=== PATIENT | female | born 1935 | race Caucasian/White ===

== ENCOUNTER 2019-12-17 08:55 | Emergency (ER) | payer MEDICARE, BC, SELFPAY ==
[2019-12-17 08:56] VITALS: BP 146/69; PULSE 67; RESP 15; TEMP 36.8; O2SAT 97; BMI 25.7
--- NOTE | 2019-12-17 10:20 | ED.VIS.GEN ---
History of Present Illness Chief Complaint: Nosebleed Narrative: Patient presenting for evaluation secondary to a nosebleed. Patient states that she has been intermittently dealing with nosebleeds from the left nostril over the course of the last couple of days. She actually was in ENT office and had a nasal scope performed, they were unable to identify a site of bleeding that would lend well to cautery and she was discharged with recommendations to use Afrin. She is continuing to have bleeding. Patient denies any trauma. Patient is not anticoagulated. Review of systems otherwise negative. Past Medical History - Allergies and Home Meds Allergies/Adverse Reactions: Allergies No Known Allergies Allergy (Verified 12/17/19 08:56) Primary Care Physician: Romario Villafana MD [STAFF PHYSICIAN] - (3 days) Past Medical History: - - Hypertension Lives: Alone Smoking Status: Former smoker Alcohol: None Drugs: None Review of Systems All systems negative except as indicated General: Denies: Chills, Fever, Sweats Eyes: Denies: Visual changes - bilaterally, Diplopia ENT: Reports: - - Epistaxis Cardiovascular: Denies: Chest pain, Palpitations Respiratory: Denies: Dyspnea, Cough, Dyspnea on exertion Gastrointestinal: Denies: Abdominal pain, Nausea, Vomiting, Diarrhea, Melena, Hematochezia Genitourinary: Denies: Dysuria, Hematuria, Frequency Musculoskeletal: Denies: Back pain, Extremity Pain Skin: Denies: Rash, Wounds Neurological: Denies: Headache, Weakness, Numbness Physical Exam Vital Signs/Narrative: Vital Signs Temp Pulse Resp BP Pulse Ox 12/17/19 08:56 98.2 F 67 15 146/69 H 97 Inital Vital Signs reviewed: Yes General: Well nourished, Well developed, No Acute Distress Head: Normocephalic, Atraumatic Eyes: Perrl, EOMI. Negative for: Pale conjunctiva ENT: - - Large amount of clot noted in the patient's left nostril. There is some blood in the posterior pharynx. Neck: Supple, Nontender Cardiovascular: Regular rate, Regular rhythm, No murmurs Respiratory: No distress, CTA bilaterally, Chest nontender Abdomen: Soft, Nontender, Nondistended, Normal bowel sounds Back: Nontender, Normal Inspection Extremities: Nontender, No edema Skin: Normal color, No rash Neurological: Alert, Oriented x3, Cranial nerves II-XII grossly intact, Normal Strength, Normal Sensation Psychological: Normal affect, Normal Mood Diagnostic/Tx/Re-eval - Medical Decision Making Patient presented with a nosebleed. She is already been evaluated by ENT, and is having persistent bleeding so I move directly to nasal packing. 5.5 cm anterior Rhino Rocket was placed, patient had hemostasis on multiple repeat evaluations. Patient will follow-up with ENT, she was placed on a course of Keflex. Procedures Procedure(s): Epistaxis management: Patient was verbally consented for anterior nasal packing. Clots were expelled by the patient, patient was then placed in the sniffing position. Lubricated anterior nasal packing was placed along patient's septum and was inflated with a total of 5 cc of air. Patient tolerated this well. ED Disposition - Plan for ED Patient: Disposition: Home or Assisted Living Diagnosis: Epistaxis Instructions: ED Epistaxis Adult Prescriptions: Cephalexin [Keflex] 500 mg PO Q12 #10 cap Prescription Printed Referrals: Romario Villafana MD [STAFF PHYSICIAN] - (3 days)
--- NOTE | 2019-12-17 23:31 | ED.RN ---
PT RETURNED FOR NOSEBLEED. THIS IS THE 3RD TRIP TO THE ED TODAY. NASAL PACKING NOTED TO BE SATURATED.
[2019-12-18] MEDS: Oxymetazoline 0.05% 1 SPRAY SPRAY.BTL 2 SPRAY NASAL (00:31)
[2019-12-18] MEDS: TRANEXAMIC ACID 1,000 MG/10 ML ML 1000 MG IRRIGATION ×2 (00:31→02:00)
[2019-12-18] MEDS: Lidocaine 4% 50 ML Bottle TOPICAL (00:31)
[2019-12-18 00:38] LABS: Absolute Lymphocyte Count 2.45 X10^3/uL (0.83-4.51); Absolute Neutrophil Count 8.4 X10^3/uL (2.0-7.7); Basophil# 0.08 X10^3/uL; Basophil% 0.7 % (0-1); Eosinophil# 0.28 X10^3/uL; Eosinophils% 2.3 % (0-5); Hematocrit 36.8 % (37-47); Hemoglobin 12.1 g/dL (12.0-15.0); Lymphocyte # 2.45 X10^3/ul (4.0); Lymphocyte % 20.1 % (19-41); Mean Corp Hgb Conc 32.9 g/dL (32-36); Mean Corpuscular Volume 97.4 fL (81-99); Mean Platelet Vol. 10.7 fl (6.2-12.0); Monocyte# 0.89 X10^3/uL; Monocyte% 7.3 % (0-10); NRBC Flagged by Analyzer 0 % (0-5); Neutrophil # 8.42 X10^3/uL (2.7-7.7); Neutrophil % 69.1 % (47-70); Platelet Count 255 K/mm3 (150-450); RBC Distribution Width CV 13.6 % (11.6-14.6); RBC Distribution Width SD 48.6 fl (35.1-43.9); Red Blood Count 3.78 M/mm3 (4.2-5.4); White Blood Count 12.2 K/mm3 (4.4-11.0)
[2019-12-18 00:42] LABS: International Normalized Ratio 1.2; Prothrombin Time (Protime)PT. 14.3 SECONDS (11.7-14.9)
[2019-12-18 00:44] LABS: Partial Thromboplast Time 28.3 Seconds (24.1-36.2)
--- NOTE | 2019-12-18 02:01 | ED.VISSUMM ---
- ER Visit Summary Date of Service: 12/18/19 Chief Complaint: Epistaxis History of Present Illness: The patient is a 84 F who presents with epistaxis that recurred again tonight. Patient was seen here twice earlier today. Patient went home and started having more bleeding. Patient then returned to the emergency department. Patient denies any lightheadedness or dizziness. Patient denies any fevers or chills. Physical Examination: Vital signs are stable. Patient is afebrile. Patient is in no acute distress. There is bleeding from the left nares. There is no bleeding from the right nares. There is bleeding in the oropharynx. There is no septal deviation or septal hematoma noted. Cranial nerves II through XII are intact. There are no focal motor or sensory deficits. Heart was regular rate and rhythm. Lungs are clear and equal bilaterally. Abdomen is soft and nontender. Cranial nerves II through XII are intact. There are no focal motor or sensory deficits. Test Results: CBC was within normal limits. PT with INR and PTT were normal. Emergency Department Course and Treatment: The left nares was packed with cotton ball soaked with Afrin and 4% lidocaine. The bleeding seemed to slow down. The left nares was sprayed with transexamined acid. The bleeding appeared to slow down. A 5 cm rapid Rhino was attempted to be placed. There was some resistance with placing the rapid Rhino. The bleeding then became worse. The left nares was again packed with cotton balls soaked with Afrin and 4% lidocaine. The bleeding appeared to improve. Case was discussed with Dr. Villafana. He recommended placing packing in the left nares. A Merocel sponge was placed in the left nares. Patient was able to tolerate this. Patient had no further episodes of epistaxis. Patient will be discharged home. Patient understood and was agreeable with the plan. All questions were answered. Disposition: Discharge home Impression: Epistaxis This note was generated with [employer] dictation software. It may contain incorrect words, spelling, and punctuation that were not noted in review of the chart prior to signing ED Disposition - Plan for ED Patient: Disposition: Home or Assisted Living Diagnosis: Epistaxis Instructions: ED Epistaxis Adult Prescriptions: Cephalexin [Keflex] 500 mg PO Q12 #10 cap Prescription Printed Referrals: Romario Villafana MD [STAFF PHYSICIAN] - 2 Days (3 days)
[2019-12-18 02:29] VITALS: PULSE 110; RESP 18; O2SAT 97
[2019-12-18 02:37] VITALS: BP 122/69
[2019-12-18 05:21] VITALS: BP 137/76; PULSE 69; RESP 15; O2SAT 97
[2019-12-18 06:20] VITALS: BP 137/76; PULSE 69; RESP 15; O2SAT 97
== END 2019-12-18 07:20 | disposition home or self-care (01) ==
PROVIDERS: Emergency Provider Emergency Medicine; PCP Internal Medicine
DX: R04.0 Epistaxis (principal); I10 Essential (primary) hypertension; M19.90 Unspecified osteoarthritis, unspecified site; Z79.899 Other long term (current) drug therapy; Z87.891 Personal history of nicotine dependence
CPT/HCPCS: 30903; 85025; 85610; 85730; 99285; A4216

== ENCOUNTER 2019-12-17 19:57 | Emergency (ER) | payer MEDICARE, BC, SELFPAY ==
[2019-12-17 08:56] VITALS: BMI 25.7
[2019-12-17 19:58] VITALS: BP 124/66; PULSE 73; RESP 16; TEMP 36.6; O2SAT 99; BMI 25.7
--- NOTE | 2019-12-17 22:01 | ED.VIS.GEN ---
History of Present Illness Chief Complaint: Nosebleed Narrative: Patient presenting for evaluation secondary to epistaxis. Patient was seen in the emergency department earlier today, had a left anterior Rhino Rocket placed. She reports that she is starting to have bleeding coming from around the Rhino Rocket. She denies any trauma. Bleeding is mild to moderate. Past Medical History - Allergies and Home Meds Allergies/Adverse Reactions: Allergies No Known Allergies Allergy (Verified 12/17/19 08:56) Primary Care Physician: Efe Winston MD [Primary Care Provider] - Prior records reviewed: Yes Past Medical History: - - Hypertension, arthritis Lives: Alone Smoking Status: Former smoker Alcohol: None Drugs: None Review of Systems All systems negative except as indicated General: Denies: Chills, Fever, Sweats Eyes: Denies: Visual changes - bilaterally, Diplopia ENT: Reports: - - Epistaxis Cardiovascular: Denies: Chest pain, Palpitations Respiratory: Denies: Dyspnea, Cough, Dyspnea on exertion Gastrointestinal: Denies: Abdominal pain, Nausea, Vomiting, Diarrhea, Melena, Hematochezia Genitourinary: Denies: Dysuria, Hematuria, Frequency Musculoskeletal: Denies: Back pain, Extremity Pain Skin: Denies: Rash, Wounds Neurological: Denies: Headache, Weakness, Numbness Physical Exam Vital Signs/Narrative: Vital Signs Temp Pulse Resp BP Pulse Ox 12/17/19 19:58 98 F 73 16 124/66 H 99 Inital Vital Signs reviewed: Yes General: Well nourished, Well developed, No Acute Distress Head: Normocephalic, Atraumatic Eyes: Perrl, EOMI ENT: - - Left anterior nasal packing is in place with bloody oozing around the packing, but the packing seems rather deflated. No blood in the posterior pharynx. Neck: Supple, Nontender Cardiovascular: Regular rate, Regular rhythm Respiratory: No distress Extremities: Nontender Skin: Normal color, No rash Neurological: Alert, Oriented x3 Psychological: Normal affect Diagnostic/Tx/Re-eval - Medical Decision Making Patient presented secondary to complications of nasal packing. Actually saw the patient on her prior visits, seems like the nasal packing is somewhat deflated. I inflated it with an additional 7 cc of air. This caused the patient's bleeding to cease. Patient was observed in the emergency department over a period of 2 hours, and did not have any rebleeding episodes. At this point I believe that she is stable for discharge. ED Disposition - Plan for ED Patient: Disposition: Home or Assisted Living Instructions: Nosebleed Referrals: Romario Villafana MD [STAFF PHYSICIAN] - 3-5 Days ()
== END 2019-12-17 22:21 | disposition home or self-care (01) ==
PROVIDERS: Emergency Provider Emergency Medicine; PCP Internal Medicine
DX: R04.0 Epistaxis (principal); I10 Essential (primary) hypertension; M19.90 Unspecified osteoarthritis, unspecified site; Z79.899 Other long term (current) drug therapy; Z87.891 Personal history of nicotine dependence
CPT/HCPCS: 30901; 85025; 85610; 85730; 99282; 99285; A4216

== ENCOUNTER 2019-12-20 08:57 | Emergency (ER) | payer MEDICARE, BC, SELFPAY ==
[2019-12-20 08:58] VITALS: BP 123/59; PULSE 85; RESP 16; TEMP 36.5; O2SAT 99; BMI 23.6
--- NOTE | 2019-12-20 09:17 | ED.VIS.GEN ---
History of Present Illness Chief Complaint: Nosebleed Informant: Patient Narrative: Patient is an 84-year-old female who presents to the emergency department for recurrent epistaxis from the left nostril. She was seen multiple times in the emergency department this past weekend. She had initially had a Rhino Rocket placed. She had to return because this mildly deflated and she started to rebleed. Later she returned and a Merocel was placed. She states that she was doing very well after this. She did see the ENT doctor last week who could not find anything to be cauterized. She states that it started dripping again this morning when she woke up. She denies any lightheadedness, chest pain, palpitations. No abdominal pain or nausea/vomiting. Not on any anticoagulation. Past Medical History - Allergies and Home Meds Allergies/Adverse Reactions: Allergies No Known Allergies Allergy (Verified 12/20/19 08:59) Primary Care Physician: Efe Winston MD [Primary Care Provider] - Prior records reviewed: Yes Smoking Status: Former smoker Review of Systems All systems negative except as indicated General: Denies: Chills, Fever Eyes: Denies: Diplopia ENT: Reports: - - Epistaxis Cardiovascular: Denies: Chest pain Respiratory: Denies: Dyspnea, Cough Gastrointestinal: Denies: Abdominal pain, Nausea, Vomiting Musculoskeletal: Denies: Neck pain, Swelling Skin: Denies: Rash Neurological: Denies: Headache Physical Exam Vital Signs/Narrative: Vital Signs Temp Pulse Resp BP Pulse Ox 12/20/19 08:58 97.7 F L 85 16 123/59 H 99 Inital Vital Signs reviewed: Yes General: Well nourished, Well developed, No Acute Distress Head: Normocephalic, Atraumatic Eyes: Perrl, EOMI ENT: Moist mucous membranes, No rhinorrhea Neck: Supple, Nontender Cardiovascular: Regular rate, Regular rhythm, No murmurs Respiratory: No distress, CTA bilaterally, Chest nontender Abdomen: Soft, Nontender, Nondistended Back: Nontender, Normal Inspection Extremities: Nontender, No edema Skin: Normal color, No rash Neurological: Alert, Normal Strength, Normal Sensation Psychological: Normal affect, Normal Mood Diagnostic/Tx/Re-eval - Medical Decision Making Patient presents to the ED for epistaxis rebleeding. She did have lab work performed last time which revealed normal coagulation studies and no signs of anemia. I did talk to Dr. Villafana who recommended placing a Rhino Rocket and having her follow-up in 2 to 3 days. The Merocel was removed and the patient had recurrence of the bleeding. The nose was then packed with lidocaine and epinephrine soaked gauze for 15 minutes. After that was removed no evidence of bleeding. That time Rhino Rocket was placed without difficulty. Patient monitored in the ED for 30 minutes after and she did not have any recurrent bleeding and tolerated the Rhino Rocket well. She will be discharged home in stable condition. Warning signs and symptoms for which to return to the ED are reviewed. She understands and is agreeable with this plan. ED Disposition - Plan for ED Patient: Disposition: Home or Assisted Living Diagnosis: Recurrent epistaxis Instructions: Nosebleed Referrals: Efe Winston MD [Primary Care Provider] - Romario Villafana MD [STAFF PHYSICIAN] - 2 Days
[2019-12-20] MEDS: EPINEPHrine Nasal 0.1% 30 ML Bottle 10 ML NASAL (10:50)
[2019-12-20] MEDS: Lidocaine 4% 50 ML Bottle TOPICAL (10:51)
[2019-12-20 11:02] VITALS: BP 150/60; PULSE 64; RESP 18; O2SAT 100
== END 2019-12-20 11:03 | disposition home or self-care (01) ==
PROVIDERS: Emergency Provider Emergency Medicine; PCP Internal Medicine
DX: R04.0 Epistaxis (principal); Z87.891 Personal history of nicotine dependence
CPT/HCPCS: 30901; 99282

== ENCOUNTER 2021-12-13 12:36 | Inpatient (IN) | payer MEDICARE, SELFPAY ==
[2021-12-13] VITALS (7 sets, daily range): BP systolic 104–165; BP diastolic 58–86; PULSE 71–84; RESP 16–18; TEMP 36.1–38.3; O2SAT 92–95; BMI 22.4; BMI 20.4
--- NOTE | 2021-12-13 14:19 | CT_ITS ---
STUDY: CT BRAIN WITHOUT CONTRAST REASON FOR EXAM: Female, 86 years old. Head trauma due to a fall. Generalized weakness. RADIATION DOSAGE (If Supplied By Facility): CTDIvol = ( 44.99 ) mGy, DLP = ( 812.98 ) mGycm TECHNIQUE: Transaxial CT imaging of the brain was performed without administration of intravenous contrast material. Individualized dose optimization techniques were used for this CT. COMPARISON: No relevant priors. FINDINGS: Normal soft tissue structures. Normal calvarium. There is mild cerebral atrophy with widening of the extra-axial spaces and ventricular dilatation. There are areas of decreased attenuation within the white matter tracts of the supratentorial brain, consistent with microvascular disease changes. Normal basal ganglia and thalami. Normal brainstem. Normal cerebellum. There is no intracranial hemorrhage. There are no findings of an acute ischemic infarction. Atherosclerotic plaque formation of the vertebral arteries and cavernous portions of the internal carotid arteries bilaterally. Normal visualized paranasal sinuses. CT/Brain/Head without Contrast IMPRESSION: Chronic involutional changes of the brain. Electronically Signed: Morris Cervantes MD at 14:57 EDT ,
[2021-12-13 14:41] LABS: Absolute Lymphocyte Count 1.28 X10^3/uL (0.83-4.51); Basophil# 0.06 X10^3/uL; Basophil% 0.3 % (0-1); Eosinophil# 0.01 X10^3/uL; Hematocrit 39.1 % (37-47); Lymphocyte # 1.28 X10^3/ul (0.83-4.51); Lymphocyte % 5.6 % (19-41); Mean Corp Hgb Conc 35.8 g/dL (32-36); Mean Corpuscular Hgb 31.7 pg (27.0-32.0); Mean Corpuscular Volume 88.5 fL (81-99); Mean Platelet Vol. 10.3 fl (6.2-12.0); Monocyte# 1.21 X10^3/uL; Monocyte% 5.3 % (0-10); NRBC Flagged by Analyzer 0 % (0-5); Neutrophil # 19.97 X10^3/uL (2.7-7.7); Neutrophil % 87.8 % (47-70); Platelet Count 183 K/mm3 (150-450); RBC Distribution Width CV 13.3 % (11.6-14.6); RBC Distribution Width SD 43.2 fl (35.1-43.9); Red Blood Count 4.42 M/mm3 (4.2-5.4); White Blood Count 22.8 K/mm3 (4.4-11.0)
--- NOTE | 2021-12-13 14:59 | EDS_ITS ---
HPI HPI - Fall History of Present Illness Chief Complaint: Fall Detail of Chief Complaint: Fell out of bed 2 days ago and today Informant: patient and family (Daughter supplemented history) Occured/Mechanism Occurred: Today and Days (2 days ago December 11) Narrative: Fell getting out of bed to use the restroom. Unable to rise from the floor. Son had to come on both occasions to help her get up. She complains of generalized weakness Fall from Height (ft): Couple of feet Usually ambulates: Without assistance Pain/Injury Location: Head occiput and face right maxillary region Quality of Pain: Dull and Aching Current Severity: Mild Maximum Severity: Mild Worsened by: Nothing Relieved by: Nothing Associated Symptoms Associated Symptoms: Positive for Inability to ambulate; Negative for Parasthesias, Weakness, Loss of function, Loss of consciousness or Amnesia Narrative Narrative: Patient is an 86-year-old woman who lives by herself. She fell out of bed 2 days ago and today. She was unable to rise from the floor. Son had to help her. Son had to put her in a wheelchair to get her to the car to be brought to the emergency room for evaluation. She has complained of mild headache. She denies double vision, blurred vision loss of vision. Denies ringing or ears decreased hearing. She denies respiratory symptoms. Denies cardiac symptoms. [place] GI symptoms. Denies symptoms. She states she feels weak. She is not on an anticoagulant. Tetanus Immunization: 5-10 years Prior similar symptoms: No Recent Illness/Hospitalization: No PFSH PFSH Medical History no medical history no medical history (Hypertension) Home Medications meloxicam 7.5 mg tablet 7.5 mg PO DAILY 12/17/19 [History Last Taken 12/17/19] triamterene 37.5 mg-hydrochlorothiazide 25 mg tablet 1 tab PO DAILY 12/17/19 [History Last Taken 12/17/19] Allergy/AdvReac Type Severity Reaction Status Date / Time No Known Allergies Allergy Verified 12/13/21 12:38 Social History (Updated 12/13/21 @ 15:[address] Anurag Reed MD) household members: none Smoking Status: Former smoker substance use type: does not use ROS ROS ED Constitutional Constitutional ED: Denies chills, fever(s), subjective, sweats or weight loss Eyes Eyes: Denies blurry vision, change in vision or diplopia ENT ENT ED: Denies ear pain, rhinorrhea or sore throat Cardiovascular Cardiovascular: Denies chest pain, orthopnea, palpitations or racing heartbeat Respiratory/Chest Respiratory/Chest: Denies cough, dyspnea, dyspnea on exertion or orthopnea Gastrointestinal Gastrointestinal: Denies abdominal pain, nausea or vomiting Genitourinary Genitourinary ED: Denies dysuria, hematuria or urinary frequency Musculoskeletal Musculoskeletal: Denies arthralgias, back pain, myalgias or neck pain Integumentary Reports Abrasions; Denies abscess or rash Neurologic Neurologic: Reports headache(s) and weakness; Denies paresthesias Psychiatric Psychiatric: Denies anxiety or depression Endocrine Endocrinology: Denies polydipsia, polyphagia or polyuria Hematologic/Lymphatic Hematologic/Lymphatic: Denies easy bleeding or easy bruising EXAM Physical Exam Const Vital Signs: 12/13/21 12:40 12/13/21 13:20 Temperature 96.9 F L Temperature Source Temporal Pulse Rate 71 Respiratory Rate 16 Respiratory Effort Normal Respiratory Depth Normal Respiratory Pattern Normal Blood Pressure 104/80 Blood Pressure Mean 88 Pulse Ox 95 Oxygen Delivery Method Room Air Room Air Positive well nourished and well developed General Appearance ED: well developed and NAD HEENT Reports normocephalic and TM's normal bilaterally HEENT Narrative: There is no septal deviation hematoma. No dental trauma. There is an abrasion with bruising over the right maxillary region. There is no hyperesthesia infraorbital nerve. There is no step-off of the infraorbital rim. There is no hemotympanum. There is no CSF otorrhea or rhinorrhea. She does have a contusion over the occiput. trauma Eyes PERRL and EOMs intact bilaterally General Eye ED: Negative for pale conjunctiva or scleral icterus Neck full ROM, no lymphadenopathy and supple Chest Wall inspection of chest normal and palpation of chest normal Resp normal respiratory effort, no retractions and clear to auscultation bilaterally Cardio regular rate, regular rhythm, S1 normal heart sound, S2 normal heart sound and no murmurs GI non-tender Auscultation: normoactive bowel sounds Palpation: soft Back/Spine no CVA tenderness Cervical Spine: Negative for cervical spine tenderness Thoracic Spine / Upper Back: Negative for ROM limited Lumbar Spine / Lower Back: Negative for lumbar spinal tenderness Neuro oriented x3, CN's II-XII intact bilaterally, moves all extremities, no focal motor deficits and no sensory deficits noted Neuro Narrative: Negative clonus or Babinski sign. [place] Coma Scale: document GCS findings Spontaneous Obeys Commands Oriented 15 Sensorium / Orientation: alert Motor Exam: strength 5/5 throughout Psych mental status grossly normal and thought process normal Skin Lesions: no lesions Rashes: no rashes Trauma: abrasion MDM MDM MDM Narrative Medical decision making narrative: In light of her age complaints per the [place] CT head rule imaging of the head was obtained. CBC was obtained to assess for infectious cause of her rapid decline. She was driving a car on Friday. She is now unable to walk across the room with using her walker. Will obtain UA to look for source of infection. Chest x-ray was not obtained since she has no abnormal auscultatory findings of the lung and has no respiratory symptoms. [place] panel was obtained to assess for renal dysfunction, electrolyte abnormality as possible cause of her symptoms. A consult was put into case management in the event that there is no metabolic or infectious cause for admission regarding assistance with potential placement or discharge to home with care White count elevated 22.8 thousand. Electrolyte panel reveals prerenal azotemia with renal insufficiency. She also has evidence of hyponatremia and hypokalemia. Urine is consistent with urinary tract infection. Urine culture was sent. Blood cultures and lactate were obtained prior to administration of Rocephin. At the time of this dictation lactate was still pending. Case was discussed with hospitalist will be a full admission to the hospital Lab Data Attestation: I reviewed the patient's lab results. Labs: Laboratory Results - last 24 hr 12/13/21 12/13/21 12/13/21 14:30 14:30 14:51 WBC 22.8 H RBC 4.42 Hgb 14.0 Hct 39.1 MCV 88.5 MCH 31.7 MCHC 35.8 RDW Std Deviation 43.2 RDW Coeff of [place] 13.3 Plt Count 183 MPV 10.3 Immature Gran % (Auto) 1.000 H Neut % (Auto) 87.8 H Lymph % (Auto) 5.6 L [place] % (Auto) 5.3 Eos % (Auto) 0.0 Baso % (Auto) 0.3 Absolute Neuts (auto) 20.0 H Absolute Lymphs (auto) 1.28 Nucleated RBC % 0 Sodium Cancelled 130 L Potassium Cancelled 3.2 L Chloride Cancelled 93 L Carbon Dioxide Cancelled 27.0 Anion Gap Cancelled 10 BUN Cancelled 36 H Creatinine Cancelled 1.22 H Estim Creat Clear Calc Cancelled 29.23 Est GFR (MDRD) Af Amer Cancelled 54 L Est GFR (MDRD) Non-Af Cancelled 44 L BUN/Creatinine Ratio Cancelled 29.5 H Glucose Cancelled 109 H Calcium Cancelled 8.9 Urine Color Urine Clarity Urine pH Ur Specific [place] Urine Protein Urine Glucose (UA) Urine Ketones Urine Occult Blood Urine Nitrite Urine Bilirubin Urine Urobilinogen Ur Leukocyte Esterase Urine RBC Urine WBC Ur Squamous Epith Cells Urine Bacteria Urine Mucus 12/13/21 15:20 WBC RBC Hgb Hct MCV MCH MCHC RDW Std Deviation RDW Coeff of [place] Plt Count MPV Immature Gran % (Auto) Neut % (Auto) Lymph % (Auto) [place] % (Auto) Eos % (Auto) Baso % (Auto) Absolute Neuts (auto) Absolute Lymphs (auto) Nucleated RBC % Sodium Potassium Chloride Carbon Dioxide Anion Gap BUN Creatinine Estim Creat Clear Calc Est GFR (MDRD) Af Amer Est GFR (MDRD) Non-Af BUN/Creatinine Ratio Glucose Calcium Urine Color Yellow Urine Clarity Sl. Cloudy Urine pH 6.0 Ur Specific [place] 1.010 Urine Protein 30 H Urine Glucose (UA) Normal Urine Ketones Negative Urine Occult Blood 50 H Urine Nitrite Negative Urine Bilirubin Negative Urine Urobilinogen Normal Ur Leukocyte Esterase 500 H Urine RBC 5-10 SEEN Urine WBC 50-100 SEEN Ur Squamous Epith Cells 0-5 SEEN Urine Bacteria 3+ Urine Mucus 0 SEEN Radiography Diagnostic Testing: Clinical Impression(s) from Imaging Studies Brain CT 12/13/21 14:19 IMPRESSION: Chronic involutional changes of the brain. Electronically Signed: Morris Cervantes MD at 14:57 EDT , Discharge Plan Triage Chief Complaint: Fall ED Provider: Anurag Reed Dx/Rx/DC Orders Clinical Impression: Complicated urinary tract infection, Falls frequently, Adult failure to thrive, Acute hyponatremia, Acute hypokalemia, Acute prerenal azotemia, Acute kidney insufficiency Prescriptions: No Action meloxicam 7.5 MG tablet 7.5 mg PO DAILY triamterene-hydrochlorothiazid 1 EACH tablet 1 tab PO DAILY Primary Care Provider: Efe Winston Referrals: Efe Winston MD [Primary Care Provider] - Disposition Disposition: [facility]
[2021-12-13 15:27] LABS: Mucous, Urine 0 SEEN /hpf (<or=2+)
[2021-12-13 15:30] LABS: Anion Gap 10 (5-15); BUN 36 mg/dL (7-18); BUN/Creat Ratio 29.5 RATIO (10-20); Calcium,Total 8.9 mg/dL (8.5-10.1); Chloride 93 mmol/L (98-107); Creatinine, Serum 1.22 mg/dL (0.55-1.02); EST Glomerular Filtration Rate 44 mL/min (>60); Est Glom Filt Rate - Afr Amer 54 mL/min (>60); Estimated Creatinine Clearance 29.23 ml/min; Glucose 109 mg/dL (74-106); Potassium 3.2 mmol/L (3.5-5.1); Sodium Level 130 mmol/L (136-145)
[2021-12-13 15:56] LABS: Color, Urine Yellow (Yellow); Glucose, Dipstick Normal (Normal); Ketone-Dipstick Negative (Negative); Leukocyte Esterase-Dipstick 500 /ul (Negative); Nitrite-Dipstick Negative (Negative); Occult Blood-Urine 50 /ul (Negative); Protein-Dipstick 30 mg/dl (Negative); Urine Bilirubin Dipstick Negative (Negative); Urine Clarity Sl. Cloudy (Clear); Urine Urobilinogen Normal (Normal)
[2021-12-13 16:25] LABS: Bacteria 3+ /hpf (None Seen); Red Blood Cells-Urine 5-10 SEEN /hpf (0-5); Squamous Epithelial Cells - UA 0-5 SEEN /hpf (5-10); White Blood Cells 50-100 SEEN /hpf (0-5)
[2021-12-13] MEDS: Ceftriaxone 1 GM/50 ML BAG IV (16:55)
--- NOTE | 2021-12-13 16:58 | PCM.HP.STD ---
HPI - General General Date of Admission: 12/13/21 Date of Service: 12/13/21 Chief Complaint: Debility, weakness, falls, urinary incontinence. HPI Narrative The patient is an 86 y/o F w/ PMHx: Former tobacco use, Possible CKD stage III unclear subtype, HTN, Frequent UTIs, Osteoarthritis who presents to the [facility] ED on 12/13/21 from home where she is normally able to perform self care; however, over the last 2-3 days she has had worsening fatigue, malaise, frequent falls and episodes of urinary incontinence unable to safely care for herself prompting family to bring her in for evaluation. She is notable hard of hearing. Family denies confusion on her part and once you speak to her ear she answers everything appropriately. Patient denies any recent upper respiratory infection type symptoms. She has had decreased appetite but denies any specific emesis or diarrhea components. Work-up in the ED included T96.9, heart rate 71, BP initially 104/80 however most recent repeat 165/80, respiratory rate 16, 95% on room air, CBC with WC 22.8, hemoglobin 14, platelet 183 with left shift, BMP with sodium 130, potassium 4.2, chloride 93, BUN/1036/1.22, glucose 109, lactic acid 1.5, urine culture and blood culture x2 pending per ED. In the ED patient administered IV rocephin. [facility] Medical History (Updated 12/13/21 @ 18:[address] Mónica Mena MD) CKD (chronic kidney disease), stage III Former tobacco use HTN (hypertension) Osteoarthritis Medical History no medical history Home Medications meloxicam 7.5 mg tablet 7.5 mg PO DAILY 12/17/19 [History Last Taken 12/11/21] triamterene 37.5 mg-hydrochlorothiazide 25 mg tablet 1 tab PO DAILY 12/17/19 [History Last Taken 12/11/21] Allergy/AdvReac Type Severity Reaction Status Date / Time No Known Allergies Allergy Verified 12/13/21 12:38 Family History (Updated 12/13/21 @ 18:[address] Mónica Mena MD) Father Asthma other (Denies any marked maternal family history including HD, DM, CA.) Surgical History (Updated 12/13/21 @ 18:[address] Mónica Mena MD) H/O cataract removal with insertion of prosthetic lens H/O oophorectomy History of total right knee replacement Social History (Updated 12/13/21 @ 18:[address] Mónica Mena MD) household members: none Smoking Status: Former smoker how long ago did patient quit smoking: Quit 1960s, smoked 1.5 ppd from teen until quit. alcohol intake: current details: Occasional EtOH intake. substance use type: does not use ROS ROS Narrative Admission Review of Systems: CONSTITUTIONAL: No weight loss, fever, chills, + weakness or fatigue. HEENT: Eyes: No visual loss, blurred vision, double vision or yellow sclerae. Ears, Nose, Throat: No hearing loss, sneezing, congestion, runny nose or sore throat. SKIN: No rash or itching, lesions, wounds. CARDIOVASCULAR: No chest pain, chest pressure or chest discomfort, palpitations, edema, orthopnea, syncopal events. RESPIRATORY: No shortness of breath, cough or sputum, wheezing, hemoptysis. GASTROINTESTINAL: + anorexia, No nausea, vomiting or diarrhea, abdominal pain, melena, BRBPR. GENITOURINARY: + Urinary incontinence, frequency. NEUROLOGICAL: + Generalized weakness. No headache, dizziness, syncope, paralysis, ataxia, numbness or tingling in the extremities, focal weakness, change in bowel or bladder control, seizure. MUSCULOSKELETAL: + muscle, back pain, joint pain or stiffness. HEMATOLOGIC: + easy bleeding or bruising. LYMPHATICS: No enlarged nodes. No history of splenectomy. PSYCHIATRIC: No history of depression or anxiety. ENDOCRINOLOGIC: No reports of sweating, cold or heat intolerance. No polyuria or polydipsia. ALLERGIES: No history of asthma, hives, eczema or rhinitis. Vital Signs Vital Signs Vital Signs: 12/13/21 12:40 12/13/21 13:20 12/13/21 14:38 Temperature 96.9 F L Temperature Source Temporal Pulse Rate 71 Respiratory Rate 16 18 Respiratory Effort Normal Respiratory Depth Normal Respiratory Pattern Normal Blood Pressure 104/80 Blood Pressure Mean 88 Pulse Ox 95 Oxygen Delivery Method Room Air Room Air 12/13/21 16:38 Temperature Temperature Source Pulse Rate 84 Respiratory Rate 18 Respiratory Effort Respiratory Depth Respiratory Pattern Blood Pressure 165/80 H Blood Pressure Mean 108 Pulse Ox 93 Oxygen Delivery Method Room Air Weight Weight: 135 lb Body Mass Index (BMI) 22.4 Physical Exam Narrative Physical Examination: General: Awake, alert, oriented x 3, hard of hearing, remains cooperative, seated upright in the ED bed, fatigued. Skin: Normal color, normal turgor, no icterus, no cyanosis except occasional staged ecchymoses including the face from recent falls. HEENT: AT/NC, EOMI, PERRLA, moderately dry MM, no carotid bruits or JVD noted. Lungs: Mildly diminished, > bases, appropriate effort, no rales, ronchi or wheezing. Heart: Currently regular rate and rhythm; no gallop, rub audible. Abdomen: Soft, NTTP, ND, normal BS, no HSM. Extremities: No cyanosis, clubbing, or edema. Neurological: Patient awake, alert, oriented as noted, cognitive function intact; pupils equally reactive to light and accommodation, cranial nerves II-XII grossly normal, moving all 4 extremities, no focal deficits, strength moderately to severely globally decreased secondary to acute presentation. Psychiatric: Affect appears fatigued, no acute evidence of depressive or anxiety feelings. Results Lab / Micro Data Result Diagrams: 12/13/21 14:30 12/13/21 14:51 Labs: Laboratory Results - last 24 hr 12/13/21 14:30: WBC 22.8 H, RBC 4.42, Hgb 14.0, Hct 39.1, MCV 88.5, MCH 31.7, MCHC 35.8, RDW Std Deviation 43.2, RDW Coeff of [place] 13.3, Plt Count 183, MPV 10.3, Immature Gran % (Auto) 1.000 H, Neut % (Auto) 87.8 H, Lymph % (Auto) 5.6 L, [place] % (Auto) 5.3, Eos % (Auto) 0.0, Baso % (Auto) 0.3, Absolute Neuts (auto) 20.0 H, Absolute Lymphs (auto) 1.28, Nucleated RBC % 0 12/13/21 14:30: Sodium Cancelled, Potassium Cancelled, Chloride Cancelled, Carbon Dioxide Cancelled, Anion Gap Cancelled, BUN Cancelled, Creatinine Cancelled, Estim Creat Clear Calc Cancelled, Est GFR (MDRD) Af Amer Cancelled, Est GFR (MDRD) Non-Af Cancelled, BUN/Creatinine Ratio Cancelled, Glucose Cancelled, Calcium Cancelled 12/13/21 14:51: Sodium 130 L, Potassium 3.2 L, Chloride 93 L, Carbon Dioxide 27.0, Anion Gap 10, BUN 36 H, Creatinine 1.22 H, Estim Creat Clear Calc 29.23, Est GFR (MDRD) Af Amer 54 L, Est GFR (MDRD) Non-Af 44 L, BUN/Creatinine Ratio 29.5 H, Glucose 109 H, Calcium 8.9 12/13/21 15:20: Urine Color Yellow, Urine Clarity Sl. Cloudy, Urine pH 6.0, Ur Specific [place] 1.010, Urine Protein 30 H, Urine Glucose (UA) Normal, Urine Ketones Negative, Urine Occult Blood 50 H, Urine Nitrite Negative, Urine Bilirubin Negative, Urine Urobilinogen Normal, Ur Leukocyte Esterase 500 H, Urine RBC 5-10 SEEN, Urine WBC 50-100 SEEN, Ur Squamous Epith Cells 0-5 SEEN, Urine Bacteria 3+, Urine Mucus 0 SEEN Radiology Impression Brain CT 12/13/21 14:19 IMPRESSION: Chronic involutional changes of the brain. Electronically Signed: Morris Cervantes MD at 14:57 EDT , Assessment & Plan Assessment/Plan (1) Complicated urinary tract infection: PLAN: Plan The patient is an 86 y/o F w/ PMHx: Former tobacco use, Possible CKD stage III unclear subtype, HTN, Frequent UTIs, Osteoarthritis who presents to the [facility] ED on 12/13/21 from home where she is normally able to perform self care; however, over the last 2-3 days she has had worsening fatigue, malaise, frequent falls and episodes of urinary incontinence unable to safely care for herself prompting family to bring her in for evaluation. #1. Debility, Frequent Falls secondary to Acute Complicated Urinary Tract Infection w/ Adult FTT: Will admit to [facility] upon ED evaluation remarkable, pending UCx, continue IVFs, monitor I/Os, continue IV Rocephin w/ transition as able pending sensitivities and speciation. PT/OT/CM consultation for discharge planning as likely would necessitate transitional versus skilled placement for ongoing therapies and safety. #2. Hyponatremia, mild: Suspected hypovolemic component but patient is also on a diuretic, admission sodium 130, will judiciously hydrate, holding diuretic temporarily, repeat CMP in a.m. #3. Hypokalemia: Admission K+ 3.2, magnesium level requested, supplementation given, repeat level in AM. #4. Possibly Acute Renal Insufficiency versus Chronic Kidney Disease Stage III, unclear subtype: Admission BUN/Cr 36/1.22, baseline renal function unknown but suspect likely this is chronic, will continue judiciously hydrate, temporarily holding diuretic, repeat CMP in a.m. #5. Hypertension: Holding patient diuretic, add back once appropriate, as needed IV hydralazine in interim. #6. Former tobacco use: Encourage continued tobacco cessation. #7. DVT prophylaxis: SCDs, heparin. #8. CODE status: Patient BREANN is her daughter who is present and living will is they believe in place but her daughter notes that she will go home and check her safe. Discussed CODE status at length including difference between FULL code, DNR-CCA and DNR-CC status. Following discussions about the differences in these status, requested DNR-CCA, no intubation status. Advanced Care Planning Face to Face Time: 16 minutes. Charges/Coding Visit Charges Inpatient E&M: 28665 Init Hosp L3 Procedures Hospitalists Procedures: 72509 Advncd Care Plan 30 Min
--- NOTE | 2021-12-13 17:09 | CM.ED ---
Social work-Emergency Department Consult received from Dr. Reed for potential discharge planning needs: senior living facility versus home health care. Chart reviewed and noted patient's last hospital presentation was in 2019 for a nosebleed. Currently in the emergency department due to a fall, which is the second time this week. Spoke with Dr. Reed who reports, based off of lab work the patient will need to be admitted to the hospital. Met with patient and patient's daughter Hayley in the emergency department, introducing to self and social work role. Patient appears hard of hearing, as evidenced by this senior technical writer having to repeat self and talking in a loud voice, but appeared to do better talking to daughter who was not wearing a mask. Explored potential discharge planning and patient's prior level of functioning. Patient lives in a one-story home, with the basement. It is not necessary however for patient to go to the basement. Patient has reportedly been independent at home taking care of her own needs, driving, and taking care of of own meals. Daughter reports patient actually just drove to [place] on [place]. Patient has a wheeled walker to use inside the home, a cane, and a medical alert button which was just installed about 2 to 3 weeks ago. Patient denies any history of home health care or senior care facility placement. No reported financial concerns. Patient's daughter lives in [place], with other children who live out of state. Explored potential need for aftercare including senior care facility and home health care. Patient reports that would like to return home, but also is aware that due to weakness this would not be the safest option. Patient voiced agreement to go with senior care facility if this is needed. Daughter reports this would be the first choice for patient before transitioning home. Educated to Medicare benefit at 100% coverage for up to the first 20 days and then co-pay starting from days 21-100. This senior technical writer provided both a printed list and text link of senior care facilities including quality and resource use data, consistent with the patient?s preferred geographic region, medical needs, and insurance network via the [employer] Guide Link. Reviewed with daughter how to indicate choices on the text link and anticipate daughter to identify choices via this method. Also provided list of home health care agencies with same quality data measures via a text link through the care port portal in case senior care facility would not be needed. Daughter reports will require for senior care facility list and come up with at least 3 choices by 12/14/2021. This senior technical writer addressed advanced directives, as noted patient indicated having both a power of finance attorney for healthcare and living will though not appearing to be on file. Patient reports believe they would be in a safe at home. Daughter agrees to look for directives and bring in should she find them. Educated patient and daughter that if medical advance directives are not in place, this can be completed while patient is in the hospital. Plan: Anticipate short-term senior care facility. Care management team to follow during hospital stay. Handoff report provided to acute RN CM and social work team. -CLAYTON Xoing, ART CONSERVATOR
[2021-12-13 17:52] LABS: Lactic Acid 1.5 mmol/L (0.4-1.9)
[2021-12-13] MEDS: 0.9% Normal Saline 1,000 ML 100 ML IV (20:39)
[2021-12-13] MEDS: Potassium Chloride Oral Tablet 20 MEQ 40 MEQ PO (23:31)
[2021-12-13] MEDS: Heparin Injection (Vial) 5,000 UNIT/ML VIAL 5000 UNIT SC (23:31)
[2021-12-14] VITALS (11 sets, daily range): BP systolic 100–163; BP diastolic 51–88; PULSE 62–84; RESP 16–19; TEMP 36.4–37.5; O2SAT 90–97
[2021-12-14] MEDS: 0.9% Normal Saline 1,000 ML 100 ML IV ×2 (05:01→15:48)
[2021-12-14 07:14] LABS: Absolute Lymphocyte Count 0.82 X10^3/uL (0.83-4.51); Absolute Neutrophil Count 12.7 X10^3/uL (2.0-7.7); Basophil# 0.04 X10^3/uL; Basophil% 0.3 % (0-1); Eosinophil# 0.02 X10^3/uL; Eosinophils% 0.1 % (0-5); Hematocrit 41.4 % (37-47); Hemoglobin 14.5 g/dL (12.0-15.0); Lymphocyte # 0.82 X10^3/ul (0.83-4.51); Lymphocyte % 5.6 % (19-41); Mean Corpuscular Volume 88.5 fL (81-99); Mean Platelet Vol. 10.7 fl (6.2-12.0); Monocyte# 0.94 X10^3/uL; Monocyte% 6.4 % (0-10); NRBC Flagged by Analyzer 0 % (0-5); Neutrophil # 12.65 X10^3/uL (2.7-7.7); Platelet Count 171 K/mm3 (150-450); RBC Distribution Width CV 13.4 % (11.6-14.6); RBC Distribution Width SD 43.7 fl (35.1-43.9); Red Blood Count 4.68 M/mm3 (4.2-5.4); White Blood Count 14.7 K/mm3 (4.4-11.0)
[2021-12-14 07:48] LABS: ALB/GLOB Ratio 0.6 RATIO (0.9-2.4); AST(SGOT) 31 U/L (15-37); Alanine Aminotransfer ALT/SGPT 34 U/L (13-56); Albumin, Serum 2.3 g/dL (3.2-5.0); Alkaline Phosphatase 117 U/L (45-117); Anion Gap 7 (5-15); BUN 32 mg/dL (7-18); BUN/Creat Ratio 27.4 RATIO (10-20); Calcium,Total 8.7 mg/dL (8.5-10.1); Chloride 98 mmol/L (98-107); Creatinine, Serum 1.17 mg/dL (0.55-1.02); EST Glomerular Filtration Rate 46 mL/min (>60); Est Glom Filt Rate - Afr Amer 56 mL/min (>60); Estimated Creatinine Clearance 31.61 ml/min; Globulin 3.9 g/dL (2.2-4.2); Glucose 104 mg/dL (74-106); Potassium 4.2 mmol/L (3.5-5.1); Protein, Total 6.2 g/dL (6.4-8.2); Sodium Level 130 mmol/L (136-145)
--- NOTE | 2021-12-14 07:58 | PN.HOSP_ITS ---
Subjective Subjective Patient was admitted with presumptive diagnosis of UTI with recent increase in urinary incontinence. Patient also has leukocytosis with forgetfulness possible dementia. Objective Data Objective Data Vital Signs: Vital Signs Temp Pulse Resp BP Pulse Ox O2 Del Method 99.4 F H 70 16 118/65 95 Room Air 12/14/21 03:10 12/14/21 03:10 12/14/21 03:10 12/14/21 03:10 12/14/21 03:10 12/14/21 03:10 Oxygen Delivery Method Room Air Weight: 130 lb 4.691 oz Body Mass Index (BMI) 20.4 Intake & Output: Intake and Output for Last 24 Hours 12/12/21 12/13/21 12/14/21 23:59 23:59 23:59 Intake Total 50 50 836.67 / 836.67 Balance 50 50 836.67 / 836.67 Lab / Micro Data Result Diagrams: 12/14/21 06:40 12/14/21 05:30 Labs: Laboratory Results - last 24 hr 12/13/21 14:30: WBC 22.8 H, RBC 4.42, Hgb 14.0, Hct 39.1, MCV 88.5, MCH 31.7, MCHC 35.8, RDW Std Deviation 43.2, RDW Coeff of [place] 13.3, Plt Count 183, MPV 10.3, Immature Gran % (Auto) 1.000 H, Neut % (Auto) 87.8 H, Lymph % (Auto) 5.6 L , [place] % (Auto) 5.3, Eos % (Auto) 0.0, Baso % (Auto) 0.3, Absolute Neuts (auto) 20.0 H, Absolute Lymphs (auto) 1.28, Nucleated RBC % 0 12/13/21 14:30: Sodium Cancelled, Potassium Cancelled, Chloride Cancelled, Carbon Dioxide Cancelled, Anion Gap Cancelled, BUN Cancelled, Creatinine Cancelled, Estim Creat Clear Calc Cancelled, Est GFR (MDRD) Af Amer Cancelled, Est GFR (MDRD) Non-Af Cancelled, BUN/Creatinine Ratio Cancelled, Glucose Cancelled, Calcium Cancelled 12/13/21 14:51: Sodium 130 L, Potassium 3.2 L, Chloride 93 L, Carbon Dioxide 27.0, Anion Gap 10, BUN 36 H, Creatinine 1.22 H, Estim Creat Clear Calc 29.23, Est GFR (MDRD) Af Amer 54 L, Est GFR (MDRD) Non-Af 44 L, BUN/Creatinine Ratio 29.5 H, Glucose 109 H, Calcium 8.9 12/13/21 14:57: Magnesium 2.0 12/13/21 15:20: Urine Color Yellow, Urine Clarity Sl. Cloudy, Urine pH 6.0, Ur Specific [place] 1.010, Urine Protein 30 H, Urine Glucose (UA) Normal, Urine Ketones Negative, Urine Occult Blood 50 H, Urine Nitrite Negative, Urine Bilirubin Negative, Urine Urobilinogen Normal, Ur Leukocyte Esterase 500 H, Urine RBC 5-10 SEEN, Urine WBC 50-100 SEEN, Ur Squamous Epith Cells 0-5 SEEN, Urine Bacteria 3+, Urine Mucus 0 SEEN 12/13/21 16:40: Lactic Acid 1.5 12/14/21 05:30: Sodium 130 L, Potassium 4.2, Chloride 98, Carbon Dioxide 25.0, Anion Gap 7, BUN 32 H, Creatinine 1.17 H, Estim Creat Clear Calc 31.61, Est GFR (MDRD) Af Amer 56 L, Est GFR (MDRD) Non-Af 46 L, BUN/Creatinine Ratio 27.4 H, Glucose 104, Calcium 8.7, Total Bilirubin 0.60, AST 31, ALT 34, Alkaline Phosphatase 117, Total Protein 6.2 L, Albumin 2.3 L, Globulin 3.9, Albumin/Globulin Ratio 0.6 L 12/14/21 06:40: WBC 14.7 H, RBC 4.68, Hgb 14.5, Hct 41.4, MCV 88.5, MCH 31.0, MCHC 35.0, RDW Std Deviation 43.7, RDW Coeff of [place] 13.4, Plt Count 171, MPV 10.7, Immature Gran % (Auto) 1.600 H, Neut % (Auto) 86.0 H, Lymph % (Auto) 5.6 L , [place] % (Auto) 6.4, Eos % (Auto) 0.1, Baso % (Auto) 0.3, Absolute Neuts (auto) 12.7 H, Absolute Lymphs (auto) 0.82 L, Nucleated RBC % 0 Micro: Microbiology 12/13/21 16:40 Blood Culture (Wb) - Anticubital Right Blood Culture - Preliminary 12/13/21 16:40 Blood Culture (Wb) - Anticubital Left Blood Culture - Preliminary Radiography Diagnostic Testing: Radiology Impression Brain CT 12/13/21 14:19 IMPRESSION: Chronic involutional changes of the brain. Electronically Signed: Morris Cervantes MD at 14:57 EDT , Physical Exam Narrative Physical exam General: Alert, Oriented x3, Cooperative HEENT: Atraumatic, PERRLA, EOMI, Normocephalic Oral: No Gingival or Mucosal Lesions/ Ulcerations Neck: Supple, No JVD, Negative Carotid Bruits Lungs: Air entry diminished in bilateral lung bases. No crepitation/rhonchi Cardiovascular: Regular rate and irregularly rhythm, Normal S1, Normal S2, systolic murmur. Abdomen: Bowel Sounds Present, Soft, Non Tender, Non-Distended : urinary incontinence relatively worsening. No increased frequency, urgency or burning micturition. No suprapubic tenderness Extremities: No edema, Capillary Refill Less than 3 Seconds Skin: No rashes, No breakdown Musculoskeletal: No Tenderness to Palpation of Joints or Extremities Neurological: Cranial nerves II-XII grossly intact, DTR 2+/4 and Symmetrical, Neuro grossly intact Psych/Mental Status: Flat affect, forgetfulness possibledementia. Assessment & Plan Assessment/Plan (1) Complicated urinary tract infection: PLAN: Plan This 86-year-old female was admitted with debility, not able to perform ADL and self-care. This is worsened for last 2 to 3 days with frequent fall fatigue. Patient had episodes of urinary incontinence which which was likely more than her baseline as per the daughter. #1.? Debility, Frequent Falls secondary to Acute Complicated Urinary Tract Infection with Adult FTT: Patient is being admitted on MedSurg floor. Patient was empirically started on IV ceftriaxone as patient had leukocytosis significant 22,000, increased urinary incontinence. Urine culture pending. Blood cultures x2 pending. Leukocytosis improving. Patient will go to transitional care/SNF after urine culture reported. #2.? Hyponatremia, possible isovolemic hyponatremia or due to diuretic: Admission sodium 130: Patient on triamterene hydrochlorothiazide at home. Urine sodium did not change after IV fluid normal saline. Continue. Discontinue meloxicam. Will judiciously hydrate, holding diuretic temporarily, repeat CMP in a.m. #3.? Hypokalemia: Admission K+ 3.2, magnesium level requested, supplementation given, repeat potassium is normal 4.2. #4.? Chronic Kidney Disease Stage IIIb: Admission BUN/Cr 36/1.22, mild improveme nt with creatinine 1.17. Estimated creatinine clearance around 31 mL/min #5.? Hypertension: Holding patient diuretic, add back once appropriate, as needed IV hydralazine in interim. #6.? Former tobacco use: Encourage continued tobacco cessation. #7.? DVT prophylaxis: SCDs, heparin. #8.? CODE status: Patient BREANN is her daughter who is present and living will is they believe in place but her daughter notes that she will go home and check her safe. Discussed CODE status at length including difference between FULL code, DNR-CCA and DNR-CC status. Following discussions about the differences in these status, requested DNR-CCA, no intubation status. 12/13/21 14:30: WBC 22.8 H, RBC 4.42, Hgb 14.0, Hct 39.1, MCV 88.5, MCH 31.7, MCHC 35.8, RDW Std Deviation 43.2, RDW Coeff of [place] 13.3, Plt Count 183, MPV 10.3, Immature Gran % (Auto) 1.000 H, Neut % (Auto) 87.8 H, Lymph % (Auto) 5.6 L , [place] % (Auto) 5.3, Eos % (Auto) 0.0, Baso % (Auto) 0.3, Absolute Neuts (auto) 20.0 H, Absolute Lymphs (auto) 1.28, Nucleated RBC % 0 12/13/21 14:30: Sodium Cancelled, Potassium Cancelled, Chloride Cancelled, Carbon Dioxide Cancelled, Anion Gap Cancelled, BUN Cancelled, Creatinine Cancelled, Estim Creat Clear Calc Cancelled, Est GFR (MDRD) Af Amer Cancelled, Est GFR (MDRD) Non-Af Cancelled, BUN/Creatinine Ratio Cancelled, Glucose Cancelled, Calcium Cancelled 12/13/21 14:51: Sodium 130 L, Potassium 3.2 L, Chloride 93 L, Carbon Dioxide 27.0, Anion Gap 10, BUN 36 H, Creatinine 1.22 H, Estim Creat Clear Calc 29.23, Est GFR (MDRD) Af Amer 54 L, Est GFR (MDRD) Non-Af 44 L, BUN/Creatinine Ratio 29.5 H, Glucose 109 H, Calcium 8.9 12/13/21 14:57: Magnesium 2.0 12/13/21 15:20: Urine Color Yellow, Urine Clarity Sl. Cloudy, Urine pH 6.0, Ur Specific [place] 1.010, Urine Protein 30 H, Urine Glucose (UA) Normal, Urine Ketones Negative, Urine Occult Blood 50 H, Urine Nitrite Negative, Urine Bilirubin Negative, Urine Urobilinogen Normal, Ur Leukocyte Esterase 500 H, Urine RBC 5-10 SEEN, Urine WBC 50-100 SEEN, Ur Squamous Epith Cells 0-5 SEEN, Urine Bacteria 3+, Urine Mucus 0 SEEN 12/13/21 16:40: Lactic Acid 1.5 12/14/21 05:30: Sodium 130 L, Potassium 4.2, Chloride 98, Carbon Dioxide 25.0, Anion Gap 7, BUN 32 H, Creatinine 1.17 H, Estim Creat Clear Calc 31.61, Est GFR (MDRD) Af Amer 56 L, Est GFR (MDRD) Non-Af 46 L, BUN/Creatinine Ratio 27.4 H, Glucose 104, Calcium 8.7, Total Bilirubin 0.60, AST 31, ALT 34, Alkaline Phosphatase 117, Total Protein 6.2 L, Albumin 2.3 L, Globulin 3.9, Albumin/Globulin Ratio 0.6 L 12/14/21 06:40: WBC 14.7 H, RBC 4.68, Hgb 14.5, Hct 41.4, MCV 88.5, MCH 31.0, MCHC 35.0, RDW Std Deviation 43.7, RDW Coeff of [place] 13.4, Plt Count 171, MPV 10.7, Immature Gran % (Auto) 1.600 H, Neut % (Auto) 86.0 H, Lymph % (Auto) 5.6 L , [place] % (Auto) 6.4, Eos % (Auto) 0.1, Baso % (Auto) 0.3, Absolute Neuts (auto) 12.7 H, Absolute Lymphs (auto) 0.82 L, Nucleated RBC % 0 Clinical Impression(s) from Imaging Studies Brain CT 12/13/21 14:19 IMPRESSION: Chronic involutional changes of the brain. Electronically Signed: Morris Cervantes MD at 14:57 EDT , Charges/Coding Visit Charges Inpatient E&M: 25468 Subs Hosp L2
[2021-12-14] MEDS: Acetaminophen 325 MG Tablet 650 MG PO (09:39)
[2021-12-14] MEDS: Ensure Plus High Protein 120 ML LIQUID PO ×2 (09:40→12:21)
[2021-12-14] MEDS: Ceftriaxone 1 GM/50 ML BAG IV (09:40)
[2021-12-14] MEDS: FLU VACC QS2022-23(6MOS UP)/PF 60 MCG/0.5 ML SYRINGE IM (09:41)
[2021-12-14] MEDS: Heparin Injection (Vial) 5,000 UNIT/ML VIAL 5000 UNIT SC ×2 (09:41→22:53)
--- NOTE | 2021-12-14 12:02 | CASEMGMT ---
Social Work SW met with pt and pt dgt Hayley Pennington. SW introduced self and role of SW and inquired about discharge plan. Discussed pt's treatment with therapy and pt feels she does need short term rehab prior to returning home alone. Pt dgt states their preferred providers are 1. TCU 2. [facility] 3. [facility]. Referral made to TCU and they are able to accept pt when medically ready. Pt and dgt updated and agreeable to d/c plan. Physician notified. Plan: TCU, when medically ready [facility]
[2021-12-15] VITALS (8 sets, daily range): BP systolic 143–161; BP diastolic 59–77; PULSE 62–80; RESP 16–24; TEMP 36.5–37.8; O2SAT 93–97
[2021-12-15] MEDS: 0.9% Normal Saline 1,000 ML 100 ML IV ×3 (02:23→22:06)
--- NOTE | 2021-12-15 08:24 | PN.HOSP_ITS ---
Objective Data Objective Data Vital Signs: Vital Signs Temp Pulse Resp BP Pulse Ox O2 Del Method 98.9 F 80 18 146/77 H 93 Room Air 12/15/21 02:24 12/15/21 02:24 12/15/21 02:24 12/15/21 02:24 12/15/21 02:24 12/15/21 02:34 Oxygen Delivery Method Room Air Weight: 130 lb 1.164 oz Body Mass Index (BMI) 20.4 Intake & Output: Intake and Output for Last 24 Hours 12/13/21 12/14/21 12/15/21 23:59 23:59 23:59 Intake Total 50 / 50 3036.67 / 3186.67 1350 / 1350 Output Total 950 / 950 Balance 50 / 50 3036.67 / 2836.67 400 / 400 Lab / Micro Data Result Diagrams: 12/14/21 06:40 12/14/21 05:30 Micro: Microbiology 12/13/21 16:40 Blood Culture (Wb) - Anticubital Right Blood Culture - Preliminary GNR lactose supervisor contingents 12/13/21 16:40 Blood Culture (Wb) - Anticubital Left Blood Culture - Preliminary GNR lactose supervisor contingents Physical Exam Narrative Seen and examined. Also talked to the patient's daughter near the bedside. Patient denies burning micturition, increased frequency or urgency. She is more fatigued, loss of appetite at home. Physical exam General: Alert, Oriented x3, Cooperative HEENT: Uses hearing aid. Atraumatic, PERRLA, EOMI, Normocephalic Oral: No Gingival or Mucosal Lesions/ Ulcerations Neck: Supple, No JVD, Negative Carotid Bruits Lungs: Air entry diminished in bilateral lung bases. No crepitation/rhonchi Cardiovascular: Regular rate and irregularly rhythm, Normal S1, Normal S2, systolic murmur. Abdomen: Bowel Sounds Present, Soft, Non Tender, Non-Distended : urinary incontinence relatively worsening. No increased frequency, urgency or burning micturition. No suprapubic tenderness Extremities: No edema, Capillary Refill Less than 3 Seconds Skin: No rashes, No breakdown Musculoskeletal: No Tenderness to Palpation of Joints or Extremities Neurological: Cranial nerves II-XII grossly intact, DTR 2+/4 and Symmetrical, Neuro grossly intact Psych/Mental Status: Flat affect, forgetfulness possible dementia. Assessment & Plan Assessment/Plan (1) Complicated urinary tract infection: PLAN: Plan This 86-year-old female was admitted with debility, not able to perform ADL and self-care. This is worsened for last 2 to 3 days with frequent fall fatigue. Patient had episodes of urinary incontinence which which was likely more than her baseline as per the daughter. #1.? Debility, Frequent Falls secondary to Acute Complicated Urinary Tract Infection with Adult FTT: Patient is being admitted on [facility] floor. Patient was empirically started on IV ceftriaxone as patient had leukocytosis significant 22,000, increased urinary incontinence. Urine culture pending. Blood cultures x2 pending. Leukocytosis improving. Patient will go to transitional care/SNF after urine culture reported. 12/15: Patient had atypical presentation of UTI and bacteremia without fever, but nonspecific symptoms of fatigue, failure to thrive and frequent falls. Patient did not had fever. Leukocytosis improving. Kidneys and bladder ultrasound ordered but not done yet. Patient denies any history of kidney stone or stricture tumor. Patient has made in TCU but her work-up is not complete yet #2.? Hyponatremia, possible isovolemic hyponatremia or due to diuretic: Admission sodium 130: Patient on triamterene hydrochlorothiazide at home. Urine sodium did not change after IV fluid normal saline. Continue. Discontinue meloxicam. Will judiciously hydrate, holding diuretic temporarily, repeat CMP in a.m. #3.? Hypokalemia: Admission K+ 3.2, magnesium level requested, supplementation given, repeat potassium is normal 4.2. #4.? Chronic Kidney Disease Stage IIIb: Admission BUN/Cr 36/1.22, mild improvement with creatinine 1.17. Estimated creatinine clearance around 31 mL/min #5.? Hypertension: Holding patient diuretic, add back once appropriate, as needed IV hydralazine in interim. #6.? Former tobacco use: Encourage continued tobacco cessation. #7.? DVT prophylaxis: SCDs, heparin. #8.? CODE status: Patient BREANN is her daughter who is present and living will is they believe in place but her daughter notes that she will go home and check her safe. Discussed CODE status at length including difference between FULL code, DNR-CCA and DNR-CC status. Following discussions about the differences in these status, requested DNR-CCA, no intubation status. 12/14/21 05:30: Sodium 130 L, Potassium 4.2, Chloride 98, Carbon Dioxide 25.0, Anion Gap 7, BUN 32 H, Creatinine 1.17 H, Estim Creat Clear Calc 31.61, Est GFR (MDRD) Af Amer 56 L, Est GFR (MDRD) Non-Af 46 L, BUN/Creatinine Ratio 27.4 H, Glucose 104, Calcium 8.7, Total Bilirubin 0.60, AST 31, ALT 34, Alkaline Phosphatase 117, Total Protein 6.2 L, Albumin 2.3 L, Globulin 3.9, Albumin/Globulin Ratio 0.6 L 12/14/21 06:40: WBC 14.7 H, RBC 4.68, Hgb 14.5, Hct 41.4, MCV 88.5, MCH 31.0, MCHC 35.0, RDW Std Deviation 43.7, RDW Coeff of [place] 13.4, Plt Count 171, MPV 10.7, Immature Gran % (Auto) 1.600 H, Neut % (Auto) 86.0 H, Lymph % (Auto) 5.6 L , [place] % (Auto) 6.4, Eos % (Auto) 0.1, Baso % (Auto) 0.3, Absolute Neuts (auto) 12.7 H, Absolute Lymphs (auto) 0.82 L, Nucleated RBC % 0 Charges/Coding Visit Charges Inpatient E&M: 56120 Subs Hosp L2
--- NOTE | 2021-12-15 08:24 | US_ITS ---
STUDY: RENAL ULTRASOUND - COMPLETE REASON FOR EXAM: Female, 86 years old. UTI with bacteremia. TECHNIQUE: Ultrasound evaluation of the kidneys was performed with real-time and static dejesus-scale imaging. COMPARISON: None. FINDINGS: RIGHT KIDNEY: Normal location of the right kidney, which is normal in size. The right kidney measures 11.5 x 4.3 x 3.9 cm. There is a normal cortex of the right kidney. The renal cortex measures 1.3 cm. There is no right renal mass or cyst. There are no right renal calculi. There is no right hydronephrosis. DISTAL RIGHT URETER: There is non-visualization of the distal right ureter. There is no demonstrated right ureterovesical junction calculus. There is nonvisualization of the right ureteral jet. LEFT KIDNEY: Normal location of the left kidney, which is normal in size. The left kidney measures 10.7 x 4.6 x 5.5 cm. There is a normal cortex of the left kidney. The renal cortex measures 1.4 cm. There is no left renal mass or cyst. There are no left renal calculi. No definite left hydronephrosis considering limited views. DISTAL LEFT URETER: There is non-visualization of the distal left ureter. There is no demonstrated left ureterovesical junction calculus. There is nonvisualization of the left ureteral jet. BLADDER: The distended urinary bladder has a volume of 723 ml. No post void bladder was obtained.. There is a normal wall thickness of the distended urinary bladder. There is no demonstrated mass within the urinary bladder. There are no demonstrated bladder calculi. US/Kidney and Bladder IMPRESSION: Normal ultrasound of the kidneys and urinary bladder. Electronically Signed: Michael Smith MD at 13:44 EDT ,
[2021-12-15] MEDS: Ensure Plus High Protein 120 ML LIQUID PO ×3 (08:59→17:32)
[2021-12-15] MEDS: Menthol/Lanolin/Calamine/Znox 113 GM Tube 1 APPLIC TOPICAL ×2 (08:59→22:09)
[2021-12-15] MEDS: Heparin Injection (Vial) 5,000 UNIT/ML VIAL 5000 UNIT SC ×2 (09:01→22:06)
[2021-12-15] MEDS: Ceftriaxone 1 GM/50 ML BAG IV (09:03)
[2021-12-15] MEDS: Acetaminophen 325 MG Tablet 650 MG PO (09:14)
[2021-12-15] MEDS: Senna/Docusate Sodium 1 Tablet 2 TABLET PO (09:14)
--- NOTE | 2021-12-15 09:52 | NURSING ---
off the unit, taken via bed to Ultrasound.
[2021-12-15] MEDS: 0.9% Saline Lock 10 ML Syringe IV (12:44)
--- NOTE | 2021-12-15 14:46 | NURSING ---
Was up to the chair for most of the morning/afternoon, assisted back to bed and had a lg loose stool. New attends applied and back into bed. Warm blanket givenn
[2021-12-15 15:12] LABS: Anion Gap 8 (5-15); BUN 28 mg/dL (7-18); BUN/Creat Ratio 25.5 RATIO (10-20); Calcium,Total 8.7 mg/dL (8.5-10.1); Chloride 103 mmol/L (98-107); EST Glomerular Filtration Rate 50 mL/min (>60); Est Glom Filt Rate - Afr Amer 60 mL/min (>60); Estimated Creatinine Clearance 33.56 ml/min; Glucose 114 mg/dL (74-106); Potassium 3.4 mmol/L (3.5-5.1); Sodium Level 134 mmol/L (136-145)
[2021-12-15] MEDS: Potassium Chloride Oral Tablet 20 MEQ 40 MEQ PO (17:31)
[2021-12-16 02:00] VITALS: BP 161/72; PULSE 79; RESP 20; TEMP 37.7; O2SAT 93
[2021-12-16 02:03] VITALS: BP 161/72; PULSE 79; RESP 20; TEMP 37.7; O2SAT 93
[2021-12-16] MEDS: Acetaminophen 325 MG Tablet 650 MG PO ×2 (02:09→13:42)
[2021-12-16] MEDS: 0.9% Normal Saline 1,000 ML 100 ML IV (06:02)
[2021-12-16 08:10] VITALS: O2SAT 93
[2021-12-16 08:18] LABS: Hematocrit 35.3 % (37-47); Hemoglobin 12.4 g/dL (12.0-15.0); Mean Corp Hgb Conc 35.1 g/dL (32-36); Mean Corpuscular Hgb 31.2 pg (27.0-32.0); Mean Corpuscular Volume 88.9 fL (81-99); Mean Platelet Vol. 10.9 fl (6.2-12.0); POSITIVE COUNT YES; POSITIVE MORPHOLOGY YES; Platelet Count 180 K/mm3 (150-450); RBC Distribution Width CV 13.6 % (11.6-14.6); RBC Distribution Width SD 44.5 fl (35.1-43.9); Red Blood Count 3.97 M/mm3 (4.2-5.4); White Blood Count 12.7 K/mm3 (4.4-11.0)
[2021-12-16 08:22] LABS: Differential Indicated MANUAL DIFF
[2021-12-16 08:41] LABS: Anion Gap 8 (5-15); BUN 24 mg/dL (7-18); BUN/Creat Ratio 28.7 RATIO (10-20); Chloride 106 mmol/L (98-107); Creatinine, Serum 0.84 mg/dL (0.55-1.02); EST Glomerular Filtration Rate 69 mL/min (>60); Est Glom Filt Rate - Afr Amer 83 mL/min (>60); Estimated Creatinine Clearance 45.88 ml/min; Glucose 102 mg/dL (74-106); Potassium 3.2 mmol/L (3.5-5.1); Sodium Level 136 mmol/L (136-145)
--- NOTE | 2021-12-16 10:00 | PCM.TXEXTCAR ---
Diet Diet Order/Speech Therapy: 12/14/21 12:08 Diet: Regular - No Added Salt Food consistency:: Regular Liquid Consistency:: Regular/Thin Is pt able to select menu?: Yes Routine Orders/Code Status Suppository Type: Dulcolax 10mg Suppository Frequency: Daily PRN Routine Lab Work: BMP (WEEKLY FOR 2 WEEKS) Code Status: DNRCC-A Therapies Weight Bearing: Weight bearing as tolerated Extremity Affected:: Bilateral Lower Physical Therapy: Eval and Treat Occupational Therapy: Eval and Treat Speech Therapy: Eval and Treat Problem/Diagnosis (1) Complicated urinary tract infection: Status: Acute Code(s): N39.0 - Urinary tract infection, site not specified Plan This 86-year-old female was admitted with debility, not able to perform ADL and self-care. This is worsened for last 2 to 3 days with frequent fall fatigue. Patient had episodes of urinary incontinence which which was likely more than her baseline as per the daughter. #1.? Debility, Frequent Falls secondary to Acute Complicated Urinary Tract Infection with Adult FTT: Patient is being admitted on [facility] floor. Patient was empirically started on IV ceftriaxone as patient had leukocytosis significant 22,000, increased urinary incontinence. Urine culture pending. Blood cultures x2 pending. Leukocytosis improving. Patient will go to transitional care/SNF after urine culture reported. 12/15: Patient had atypical presentation of UTI and bacteremia without fever, but nonspecific symptoms of fatigue, failure to thrive and frequent falls. Patient did not had fever. Leukocytosis improving. Kidneys and bladder ultrasound ordered but not done yet. Patient denies any history of kidney stone or stricture tumor. Patient has made in TCU but her work-up is not complete yet #2.? Hyponatremia, possible isovolemic hyponatremia or due to diuretic: Admission sodium 130: Patient on triamterene hydrochlorothiazide at home. Urine sodium did not change after IV fluid normal saline. Continue. Discontinue meloxicam. Will judiciously hydrate, holding diuretic temporarily, repeat CMP in a.m. #3.? Hypokalemia: Admission K+ 3.2, magnesium level requested, supplementation given, repeat potassium is normal 4.2. #4.? Chronic Kidney Disease Stage IIIb: Admission BUN/Cr 36/1.22, mild improvement with creatinine 1.17. Estimated creatinine clearance around 31 mL/min #5.? Hypertension: Holding patient diuretic, add back once appropriate, as needed IV hydralazine in interim. #6.? Former tobacco use: Encourage continued tobacco cessation. #7.? DVT prophylaxis: SCDs, heparin. #8.? CODE status: Patient BREANN is her daughter who is present and living will is they believe in place but her daughter notes that she will go home and check her safe. Discussed CODE status at length including difference between FULL code, DNR-CCA and DNR-CC status. Following discussions about the differences in these status, requested DNR-CCA, no intubation status. 12/14/21 05:30: Sodium 130 L, Potassium 4.2, Chloride 98, Carbon Dioxide 25.0, Anion Gap 7, BUN 32 H, Creatinine 1.17 H, Estim Creat Clear Calc 31.61, Est GFR (MDRD) Af Amer 56 L, Est GFR (MDRD) Non-Af 46 L, BUN/Creatinine Ratio 27.4 H, Glucose 104, Calcium 8.7, Total Bilirubin 0.60, AST 31, ALT 34, Alkaline Phosphatase 117, Total Protein 6.2 L, Albumin 2.3 L, Globulin 3.9, Albumin/Globulin Ratio 0.6 L 12/14/21 06:40: WBC 14.7 H, RBC 4.68, Hgb 14.5, Hct 41.4, MCV 88.5, MCH 31.0, MCHC 35.0, RDW Std Deviation 43.7, RDW Coeff of [place] 13.4, Plt Count 171, MPV 10.7, Immature Gran % (Auto) 1.600 H, Neut % (Auto) 86.0 H, Lymph % (Auto) 5.6 L, [place] % (Auto) 6.4, Eos % (Auto) 0.1, Baso % (Auto) 0.3, Absolute Neuts (auto) 12.7 H, Absolute Lymphs (auto) 0.82 L, Nucleated RBC % 0 Allergies/Procedures Done in Hospital Allergies No Known Allergies Allergy (Verified 12/13/21 12:38) Type of Care/Length of Stay Estimated LOS: Convalescent Care Less Than 30 days Type of Care Needed: Skilled Rehab Potential: Good Prognosis: Good Additional Orders/Day of Discharge Day of Discharge: 12/16/21 Dietary and Speech Recommendations Dietitian Recommendations/Changes: Will liberalize diet to Regular No Added Salt d/t pt advanced age and wt loss Will continue ONS w/ medpass for increased nutrition if consumed. Discharge Plan Admission Admit Date/Time: 12/13/21 17:00 Primary Reason for Your Visit: UTI Attending Provider: Hawk Wheeler Primary Care Provider: Efe Winston Consulting Providers: Mónica Mena Discharge Orders/Prescriptions Prescriptions: New sennosides-docusate sodium [Stool Softener-Stimulant Laxat] 8.6-50 mg Tablet 2 tab PO BID PRN PRN (Reason: Constipation) Qty: 0 0RF ciprofloxacin HCl [Cipro] 500 mg tablet 500 mg PO BID Qty: 10 0RF Rx Instructions: STARTING FRPM 12/17/21 acetaminophen [Tylenol] 325 mg Tablet 650 mg PO Q4H PRN PRN (Reason: Fever, pain 1-11/19) Qty: 0 0RF Continued triamterene-hydrochlorothiazid 1 EACH tablet 1 tab PO DAILY Changed meloxicam 7.5 MG tablet 7.5 mg PO DAILY PRN (Reason: PRN) Qty: 3 0RF Referrals / Follow Up: Efe Winston MD [Primary Care Provider] - Disposition Disposition (needs filled in before D/C Order can be placed): [facility] Facility
[2021-12-16 10:09] LABS: Eosinophil 2 % (0-5); Lymphocyte 23 % (19-41); Metamyelocyte 1 % (0-1); Monocyte 11 % (0-10); Myelocyte 1 % (0-0); Neutrophil-Band 2 % (0-5); Neutrophil-Segmented 60 % (47-70); Platelet Estimate ADEQUATE (ADEQ); Red Cell Morphology NORM C+C NORMAL (NORM C&C); Total Cells Counted 100 (MANUAL DIFF)
[2021-12-16 10:13] LABS: Absolute Lymphocyte Count 2.92 X10^3/uL (0.83-4.51); Absolute Neutrophil Count 7.9 X10^3/uL (2.0-7.7)
[2021-12-16] MEDS: Ceftriaxone 1 GM/50 ML BAG IV (10:32)
[2021-12-16] MEDS: Ensure Plus High Protein 120 ML LIQUID PO (10:33)
[2021-12-16] MEDS: Menthol/Lanolin/Calamine/Znox 113 GM Tube 1 APPLIC TOPICAL (10:34)
[2021-12-16] MEDS: Heparin Injection (Vial) 5,000 UNIT/ML VIAL 5000 UNIT SC (10:35)
[2021-12-16 10:36] VITALS: BP 152/73; PULSE 67; RESP 20; TEMP 37.8; O2SAT 96
--- NOTE | 2021-12-16 10:54 | PCM.DC.SUM ---
Providers Date of Admission: 12/13/21 Date of Discharge: 12/16/21 Primary Care Physician: Dr. Efe Winston MD Reason For Visit: COMPLICATED UTI Diagnosis Discharge Diagnosis (1) Complicated urinary tract infection: Status: Acute Code(s): N39.0 - Urinary tract infection, site not specified Medications at Discharge Home Medications triamterene 37.5 mg-hydrochlorothiazide 25 mg tablet 1 tab PO DAILY 12/17/19 Lactobacillus acidophilus 1 billion cell tablet 1,000 mmu cells PO BID #14 tabs 12/16/21 acetaminophen 325 mg tablet (Tylenol) 650 mg PO Q4H PRN PRN Fever, pain 1-11/19 #0 tabs 12/16/21 ciprofloxacin HCl 500 mg tablet 500 mg PO BID #14 tabs 12/16/21 meloxicam 7.5 mg tablet 7.5 mg PO DAILY PRN PRN #3 tabs 12/16/21 sennosides 8.6 mg-docusate sodium 50 mg tablet (Stool Softener-Stimulant Laxative) 2 tab PO BID PRN PRN Constipation #0 tabs 12/16/21 Hospital Course Summary of Care Provided Hospital Course: This 86-year-old female was admitted with debility, not able to perform ADL and self-care. This is worsened for last 2 to 3 days with frequent fall fatigue. Patient had episodes of urinary incontinence which which was likely more than her baseline as per the daughter. #1. Acute Complicated E. coli UTI with E. coli bacteremia: Patient is being admitted on [facility] floor. Patient has atypical presentation of UTI and bacteremia with fatigue, debility with no energy but no dysuria or increased frequency or urgency. Patient was empirically started on IV ceftriaxone as patient had leukocytosis significant 22,000, increased urinary incontinence. Urine culture grew more than 100,000 E. coli, ESBL negative. Blood cultures x2 grew same E. coli. 12/15: Patient had atypical presentation of UTI and bacteremia without fever, but nonspecific symptoms of fatigue, failure to thrive and frequent falls. Patient did not had fever. Leukocytosis improving. Kidneys and bladder ultrasound ordered but not done yet. Patient denies any history of kidney stone or stricture tumor. Patient has made in TCU but her work-up is not complete yet 12/16: Leukocytosis improved, 12.7 thousand. Temperature T-max 100.1 Fahrenheit. Platelet count 180,000. Patient had low-grade fever, T-max 100.1 Fahrenheit. IV antibiotics ceftriaxone changed to Cipro 500 mg twice daily. Continue Cipro for total of 7 more days. Lactobacillus added. Patient has bed in TCU therefore discharged. ? Debility, Frequent Falls with Adult FTT secondary to complicated E. coli UTI with E. coli bacteremia #2.? Hyponatremia, possible isovolemic hyponatremia or due to diuretic: Admission sodium 130: Patient on triamterene hydrochlorothiazide at home. Urine sodium did not change after IV fluid normal saline. Continue. Discontinue meloxicam. Will judiciously hydrate, holding diuretic temporarily, repeat CMP in a.m. 12/16: Serum sodium 1 36,000. #3.? Hypokalemia: Admission K+ 3.2 12/16: Potassium 3.2. Potassium replaced. Serum magnesium normal. #4.? Chronic Kidney Disease Stage IIIb: Admission BUN/Cr 36/1.22, mild improvement with creatinine 1.17. Estimated creatinine clearance around 31 mL/min 12/16: Creatinine clearance 45 mill per minute. Creatinine 0.84. #5.? Hypertension: Holding patient diuretic, add back once appropriate, as needed IV hydralazine in interim. #6.? Former tobacco use: Encourage continued tobacco cessation. #7.? DVT prophylaxis: SCDs, heparin. #8.? CODE status: Patient BREANN is her daughter who is present and living will is they believe in place but her daughter notes that she will go home and check her safe. Discussed CODE status at length including difference between FULL code, DNR-CCA and DNR-CC status. Following discussions about the differences in these status, requested DNR-CCA, no intubation status. Discharge medication reconciliation done. Discharge follow-up instructions completed. Discharge process discussed with the patient and all questions were answered to patient's satisfaction. Discharge medications discussed with patient's daughter near the bedside Total time spent, exact 35 minutes on discharge meds reconciliation, examination, coordination of care with nurses and ancillary staff, review of imaging and blood test and discussion with the patient on follow-up instructions. Microbiology Past 72 Hours 12/16/21 10:12 Nasal Secretion SARS-CoV-2 Antigen (Rapid) - Final 12/13/21 15:20 Urine, Clean Catch Urine Culture - Final Escherichia coli 12/13/21 16:40 Blood Culture (Wb) - Anticubital Right Blood Culture - Final GNR lactose university administrative assistant 12/13/21 16:40 Blood Culture (Wb) - Anticubital Left Blood Culture - Final Escherichia coli Laboratory Results 12/15/21 14:35: Sodium 134 L, Potassium 3.4 L, Chloride 103, Carbon Dioxide 23.0, Anion Gap 8, BUN 28 H, Creatinine 1.10 H, Estim Creat Clear Calc 33.56, Est GFR (MDRD) Af Amer 60, Est GFR (MDRD) Non-Af 50 L, BUN/Creatinine Ratio 25.5 H, Glucose 114 H, Calcium 8.7 12/16/21 07:35: WBC 12.7 H, RBC 3.97 L, Hgb 12.4, Hct 35.3 L, MCV 88.9, MCH 31.2, MCHC 35.1, RDW Std Deviation 44.5 H, RDW Coeff of [place] 13.6, Plt Count 180, MPV 10.9, Neut % (Auto) Not Reportable, Absolute Neuts (auto) 7.9 H, Absolute Lymphs (auto) 2.92, Total Counted 100, Neutrophils % (Manual) 60, Band Neutrophils % 2, Lymphocytes % (Manual) 23, Monocytes % (Manual) 11 H, Eosinophils % (Manual) 2, Metamyelocytes % 1, Myelocytes % 1 H, Diff Path Review June, Platelet Estimate ADEQUATE, RBC Morphology NORM C+C 12/16/21 07:35: Sodium 136, Potassium 3.2 L, Chloride 106, Carbon Dioxide 22.0, Anion Gap 8, BUN 24 H, Creatinine 0.84, Estim Creat Clear Calc 45.88, Est GFR (MDRD) Af Amer 83, Est GFR (MDRD) Non-Af 69, BUN/Creatinine Ratio 28.7 H, Glucose 102, Calcium 8.0 L Physical Exam Narrative Seen and examined. I also talked to the patient's daughter near the bedside. Patient denies burning micturition, increased frequency or urgency. Mild low-grade fever. Leukocytosis improving Physical exam General: Alert, Oriented x3, Cooperative HEENT: Uses hearing aid. Atraumatic, PERRLA, EOMI, Normocephalic Oral: No Gingival or Mucosal Lesions/ Ulcerations Neck: Supple, No JVD, Negative Carotid Bruits Lungs: Air entry diminished in bilateral lung bases. No crepitation/rhonchi Cardiovascular: Regular rate and irregularly rhythm, Normal S1, Normal S2, systolic murmur. Abdomen: Bowel Sounds Present, Soft, Non Tender, Non-Distended : urinary incontinence relatively worsening. No increased frequency, urgency or burning micturition. No suprapubic tenderness Extremities: No edema, Capillary Refill Less than 3 Seconds Skin: No rashes, No breakdown Musculoskeletal: No Tenderness to Palpation of Joints or Extremities Neurological: Cranial nerves II-XII grossly intact, DTR 2+/4 and Symmetrical, Neuro grossly intact Psych/Mental Status: Flat affect, forgetfulness possible dementia. Weight / BMI Weight Weight: 143 lb 4.807 oz Body Mass Index (BMI) 20.4 ABG / Lab / Microbiology Data Result Diagrams: 12/16/21 07:35 12/16/21 07:35 Laboratory: Laboratory Results - last 24 hr 12/15/21 14:35: Sodium 134 L, Potassium 3.4 L, Chloride 103, Carbon Dioxide 23.0, Anion Gap 8, BUN 28 H, Creatinine 1.10 H, Estim Creat Clear Calc 33.56, Est GFR (MDRD) Af Amer 60, Est GFR (MDRD) Non-Af 50 L, BUN/Creatinine Ratio 25.5 H, Glucose 114 H, Calcium 8.7 12/16/21 07:35: WBC 12.7 H, RBC 3.97 L, Hgb 12.4, Hct 35.3 L, MCV 88.9, MCH 31.2, MCHC 35.1, RDW Std Deviation 44.5 H, RDW Coeff of [place] 13.6, Plt Count 180, MPV 10.9, Neut % (Auto) Not Reportable, Absolute Neuts (auto) 7.9 H, Absolute Lymphs (auto) 2.92, Total Counted 100, Neutrophils % (Manual) 60, Band Neutrophils % 2, Lymphocytes % (Manual) 23, Monocytes % (Manual) 11 H, Eosinophils % (Manual) 2, Metamyelocytes % 1, Myelocytes % 1 H, Diff Path Review May , Platelet Estimate ADEQUATE, RBC Morphology NORM C+C 12/16/21 07:35: Sodium 136, Potassium 3.2 L, Chloride 106, Carbon Dioxide 22.0, Anion Gap 8, BUN 24 H, Creatinine 0.84, Estim Creat Clear Calc 45.88, Est GFR (MDRD) Af Amer 83, Est GFR (MDRD) Non-Af 69, BUN/Creatinine Ratio 28.7 H, Glucose 102, Calcium 8.0 L Microbiology: Microbiology 12/16/21 10:12 Nasal Secretion SARS-CoV-2 Antigen (Rapid) - Final 12/13/21 15:20 Urine, Clean Catch Urine Culture - Final Escherichia coli 12/13/21 16:40 Blood Culture (Wb) - Anticubital Right Blood Culture - Final GNR lactose university administrative assistant 12/13/21 16:40 Blood Culture (Wb) - Anticubital Left Blood Culture - Final Escherichia coli Radiography Diagnostic Testing: Radiology Impression Renal Ultrasound 12/15/21 08:24 IMPRESSION: Normal ultrasound of the kidneys and urinary bladder. Electronically Signed: Michael Smith MD at 13:44 EDT Reading Location ID and State: [address] [place] [address] , Service support , Meaningful Use Info Meaningful Use Diagnoses (Choose all that apply): None applicable Discharge Plan Admission Admit Date/Time: 12/13/21 17:00 Primary Reason for Your Visit: UTI Attending Provider: Hawk Wheeler Primary Care Provider: Efe Winston Consulting Providers: Mónica Mena Discharge Orders/Prescriptions Prescriptions: New sennosides-docusate sodium [Stool Softener-Stimulant Laxat] 8.6-50 mg Tablet 2 tab PO BID PRN PRN (Reason: Constipation) Qty: 0 0RF acetaminophen [Tylenol] 325 mg Tablet 650 mg PO Q4H PRN PRN (Reason: Fever, pain 1-11/19) Qty: 0 0RF ciprofloxacin HCl 500 mg Tablet 500 mg PO BID Qty: 14 0RF Lactobacillus acidophilus 1 billion cell tablet 1,000 mmu cells PO BID Qty: 14 0RF Continued triamterene-hydrochlorothiazid 1 EACH tablet 1 tab PO DAILY Changed meloxicam 7.5 MG tablet 7.5 mg PO DAILY PRN (Reason: PRN) Qty: 3 0RF Referrals / Follow Up: Efe Winston MD [Primary Care Provider] - Disposition Disposition (needs filled in before D/C Order can be placed): Longterm Facility Charges/Coding Visit Charges Inpatient E&M: 67482 Disch Hosp
--- NOTE | 2021-12-16 12:46 | NURSING ---
Report given to Janae Cordova in TCU.
[2021-12-16] MEDS: Ciprofloxacin 500 MG Tablet PO (13:19)
[2021-12-16] MEDS: Potassium Chloride Oral Tablet 20 MEQ 40 MEQ PO (13:19)
[2021-12-16 13:28] VITALS: BP 126/63; PULSE 70; RESP 18; TEMP 37.8; O2SAT 93
[2021-12-17 12:37] LABS: Pathologist Review Reviewed
== END 2021-12-16 13:55 | disposition skilled nursing facility (03) | DRG 690 ==
LOC: ED 17:07 → MS3 18:12
PROVIDERS: Admitting Provider Family Medicine; Emergency Provider Emergency Medicine; PCP Internal Medicine; Visit Provider Internal Medicine
DX: N39.0 Urinary tract infection, site not specified (principal); E87.1 Hypo-osmolality and hyponatremia; N18.32 Chronic kidney disease, stage 3b; I12.9 Hypertensive chronic kidney disease with stage 1 through stage 4 chronic kidney disease, or unspecified chronic kidney disease; E87.6 Hypokalemia; R62.7 Adult failure to thrive; Z87.891 Personal history of nicotine dependence; B96.20 Unspecified Escherichia coli [E. coli] as the cause of diseases classified elsewhere; Z23 Encounter for immunization; Z79.899 Other long term (current) drug therapy; R29.6 Repeated falls; R32 Unspecified urinary incontinence
CPT/HCPCS: 36415; 70450; 76770; 80048; 80053; 81001; 83605; 83735; 85025; 87040; 87077; 87086; 87088; 87186; 87811; 97162; 97166; 97802; 99251; 99285; G0008; J7030; 90686; A4216; G0463

== ENCOUNTER 2021-12-16 14:25 | Inpatient (IN) | payer MEDICARE, SELFPAY ==
[2021-12-16 14:36] VITALS: BP 125/61; PULSE 64; RESP 12; RESP 18; TEMP 37.4; O2SAT 96; BMI 23.2
[2021-12-16 15:06] VITALS: BP 125/61; PULSE 64; RESP 12; TEMP 37.4; O2SAT 96
--- NOTE | 2021-12-16 16:38 | NURSING ---
PER DAUGHTER,PLEASE MAKE SURE PT HEARING AIDS ARE CHARGING AT NIGHT. IN MORNING AT BREAKFAST TO HAVE HER HEARING AIDES IN AND GLASSES ON. PT DOES NOT LIKE ICE IN HER WATER.
--- NOTE | 2021-12-16 16:39 | HP.PCM_ITS ---
HPI - General General Date of Admission: 12/16/21 Date of Service: 12/17/21 Chief Complaint: Here for rehab. HPI Narrative 12/13/2021 JENNIFER CORTEZ, is a 86 Female who presents to [facility] Emergency Department with fall. Fell out of bed 2 days prior, unable to get up. Son helped her up, mild headache. WBC 22.8, Sodium 130, Potassium 3.2, BUN 30, Creatinine 1.22. Urinalysis consistent with urinary tract infection, urine culture sent, blood culture sent, check lactate. Ceftriaxone IV given. 12/13/2021 Admit to Hospital. PT/OT for [facility]. Ceftriaxone IV for urinary tract infection. Replace potassium 3.2. Gentle IV fluids for acute kidney injury, hyponatremia. Hold diuretic for Hypertension, Hydralazine IV as needed for elevated blood pressure. 12/14/2021 Gentle IV fluids for sodium 130. 12/15/2021 Hold diuretic for low sodium. 12/16/2021 Fever 100.1 Urine culture growing E. Coli, Cetriaxone changed to Cipro x 7 more days. 12/16/2021 Admit to TCU with debility, here for rehabilitation, strengthening, prior to discharge home. [facility] Medical History CKD (chronic kidney disease), stage III Former tobacco use HTN (hypertension) Osteoarthritis Home Medications triamterene 37.5 mg-hydrochlorothiazide 25 mg tablet 1 tab PO DAILY BP 12/17/19 [History Last Taken 12/11/21] Lactobacillus acidophilus 1 billion cell tablet 1,000 mmu cells PO BID probiotic 12/16/21 [History Last Taken Unknown] acetaminophen 325 mg tablet (Tylenol) 650 mg PO Q4H PRN PRN Fever, pain 1-11/19 #0 tabs 12/16/21 [Rx Last Taken Unknown] ciprofloxacin HCl 500 mg tablet 500 mg PO BID UTI 12/16/21 [History Last Taken Unknown] meloxicam 7.5 mg tablet 7.5 mg PO DAILY PRN PRN #3 tabs 12/16/21 [Rx Last Taken 12/11/21] sennosides 8.6 mg-docusate sodium 50 mg tablet (Stool Softener-Stimulant Laxative) 2 tab PO BID PRN PRN Constipation #0 tabs 12/16/21 [Rx Last Taken Unknown] Allergy/AdvReac Type Severity Reaction Status Date / Time No Known Allergies Allergy Verified 12/13/21 12:38 Family History Father Asthma Surgical History H/O cataract removal with insertion of prosthetic lens H/O oophorectomy History of total right knee replacement Social History household members: none Smoking Status: Former smoker how long ago did patient quit smoking: Quit 1960s, smoked 1.5 ppd from teen until quit. alcohol intake: current details: Occasional EtOH intake. substance use type: does not use ROS Constitutional Constitutional: Denies chills, fever(s) or weight gain ENT HEENT: Denies headache(s), nasal congestion or nasal discharge Cardiovascular Cardiovascular: Denies chest pain or palpitations Respiratory/Chest Respiratory/Chest: Denies cough, excessive phlegm production or shortness of breath with exertion Gastrointestinal Gastrointestinal: Denies abdominal pain, nausea or vomiting Genitourinary Genitourinary: Denies dysuria Musculoskeletal Musculoskeletal: Denies joint pain or joint swelling Integumentary Integumentary: Denies rash or wounds Neurologic Neurologic: Denies focal weakness, numbness or tingling Psychiatric Psychiatric: Denies anxiety, auditory hallucinations, depression, homicidal ideation or suicidal ideation Vital Signs Vital Signs Vital Signs: 12/16/21 14:36 12/16/21 15:06 12/16/21 14:36 Temperature 99.3 F H 99.3 F H Temperature Source Oral Oral Pulse Rate 64 64 64 Pulse Rhythm Irregular Pulse Strength Normal (2+) Respiratory Rate 12 12 18 Respiratory Effort Normal Respiratory Depth Normal Respiratory Pattern Normal Blood Pressure 125/61 H 125/61 H Blood Pressure Mean 82 82 Blood Pressure Source Monitor Monitor Blood Pressure Position Supine Supine Blood Pressure Location Left Arm Left Arm Pulse Ox 96 96 96 Oxygen Delivery Method Room Air Room Air Room Air Weight Weight: 63.276 kg Body Mass Index (BMI) 23.2 Physical Exam Const alert General Appearance: cooperative HEENT normocephalic Eyes PERRL and EOMs intact bilaterally Neck supple, no JVD and no carotid bruits Resp normal respiratory effort, normal air movement and clear to auscultation bilaterally Cardio regular rate and regular rhythm GI normal to inspection, nondistended, normoactive bowel sounds, non-tender and non-distended Extremity normal capillary refill General Extremity: Negative for edema Skin no rashes or lesions noted General Skin Exam: no breakdown Psych affect normal Appearance: appropriate Results Lab / Micro Data Result Diagrams: 12/17/21 05:31 12/17/21 05:31 Assessment & Plan Assessment/Plan (1) Debility: (2) Urinary tract infection: (3) Hypokalemia: (4) Hyponatremia: (5) Hypertension: (6) Osteoarthritis: PLAN: Plan 86 year old female with below past medical history hospitalized for E. Coli urinary tract infection, complicated by hyponatremia, hypokalemia, admitted to TCU with debility, here for rehabilitation, strengthening, prior to discharge home alone. * Debility - PT/OT. * Cognition - ST. * Pain - Tylenol 1000mg q6 prn pain (1-5), Meloxicam 7.5mg daily prn pain (6- 10). * Bowel - Senna/colace 1 tablet bid, MOM 30ml daily prn. * Adult immunization - Administer pneumonia vaccine, covid19 vaccine, flu vacci ne as appropriate. * DVT prophylaxis - Hold. * E. Coli urinary tract infection - Cipro 500mg bid thru 12/23/2021. * GI prophylaxis - Lactobacillus 1 tablet bid thru 12/23/2021. * Hypertension - Maxzide 37.5/25mg daily.
[2021-12-16] MEDS: Senna/Docusate Sodium 1 Tablet PO (17:42)
[2021-12-16] MEDS: Ciprofloxacin 500 MG Tablet PO (17:42)
[2021-12-17 05:01] VITALS: BP 137/55; PULSE 67; RESP 16; TEMP 36.9; O2SAT 96
[2021-12-17] MEDS: Ciprofloxacin 500 MG Tablet PO ×2 (05:09→17:30)
[2021-12-17] MEDS: Senna/Docusate Sodium 1 Tablet PO ×2 (05:09→17:30)
[2021-12-17] MEDS: Triamterene 37.5MG/Hctz 25MG Capsule 1 CAP PO (05:09)
[2021-12-17 05:40] LABS: Hemoglobin 12.4 g/dL (12.0-15.0); Mean Corp Hgb Conc 35.4 g/dL (32-36); Mean Corpuscular Hgb 31.3 pg (27.0-32.0); Mean Corpuscular Volume 88.4 fL (81-99); Mean Platelet Vol. 9.9 fl (6.2-12.0); POSITIVE COUNT YES; POSITIVE MORPHOLOGY YES; Platelet Count 245 K/mm3 (150-450); RBC Distribution Width CV 13.7 % (11.6-14.6); RBC Distribution Width SD 44.5 fl (35.1-43.9); Red Blood Count 3.96 M/mm3 (4.2-5.4); White Blood Count 15.5 K/mm3 (4.4-11.0)
[2021-12-17 05:44] LABS: Differential Indicated MANUAL DIFF
[2021-12-17 06:13] LABS: Anion Gap 9 (5-15); BUN 20 mg/dL (7-18); BUN/Creat Ratio 22.7 RATIO (10-20); Calcium,Total 8.1 mg/dL (8.5-10.1); Chloride 103 mmol/L (98-107); Creatinine, Serum 0.88 mg/dL (0.55-1.02); EST Glomerular Filtration Rate 64 mL/min (>60); Est Glom Filt Rate - Afr Amer 78 mL/min (>60); Estimated Creatinine Clearance 40.53 ml/min; Glucose 111 mg/dL (74-106); Sodium Level 134 mmol/L (136-145)
[2021-12-17 07:33] LABS: Lymphocyte 16 % (19-41); Metamyelocyte 2 % (0-1); Monocyte 2 % (0-10); Myelocyte 4 % (0-0); Neutrophil-Band 1 % (0-5); Neutrophil-Segmented 75 % (47-70); Total Cells Counted 100 (MANUAL DIFF)
[2021-12-17 07:34] LABS: Platelet Estimate ADEQUATE (ADEQ); Red Cell Morphology NORM C+C NORMAL (NORM C&C)
[2021-12-17 07:36] LABS: Absolute Lymphocyte Count 2.47 X10^3/uL (0.83-4.51); Absolute Neutrophil Count 11.7 X10^3/uL (2.0-7.7); Lymphocyte # 2.47 X10^3/ul (0.83-4.51); Promyelocyte 4 % (0-0)
[2021-12-17] MEDS: Tuberculin,Purif.prot.deriv. 50 TU/ML Vial 0.1 ML ID (10:57)
--- NOTE | 2021-12-17 11:41 | NURSING ---
Wood Borer Note; Activity Asset complete
[2021-12-17 12:29] VITALS: O2SAT 92
[2021-12-17 12:39] LABS: Pathologist Review Reviewed
[2021-12-17 14:35] VITALS: BP 119/60; PULSE 61; RESP 14; TEMP 36.4; O2SAT 96
[2021-12-17 16:55] VITALS: O2SAT 95
[2021-12-17 21:00] VITALS: PULSE 72; RESP 16; O2SAT 97
[2021-12-18] MEDS: Triamterene 37.5MG/Hctz 25MG Capsule 1 CAP PO (05:34)
[2021-12-18] MEDS: Senna/Docusate Sodium 1 Tablet PO ×2 (05:34→17:28)
[2021-12-18] MEDS: Ciprofloxacin 500 MG Tablet PO ×2 (05:34→17:28)
[2021-12-18 05:36] VITALS: BP 128/59; PULSE 64
[2021-12-18 14:30] VITALS: BP 116/65; PULSE 80; RESP 18; TEMP 36.7; O2SAT 94
--- NOTE | 2021-12-18 15:26 | CASEMGMT ---
Social Work Met with patient to complete initial assessment. Introduced self and role. Dtr present in room. Pt granted permission for dtr to be present for assessment. Verified contacts. Discussed code status and MOLST form. Pt confirms DNR-CC. MOLST completed, placed in 's folder. Educated to [facility] insurance and continued stay is not guaranteed with each review. Pts goal is to return home alone at [facility]. SW to continue to follow for DC planning. Viviane Jamison, FIELD TECHNICAL ASSISTANT TUBE COVERER
[2021-12-19] MEDS: Senna/Docusate Sodium 1 Tablet PO ×2 (05:40→17:42)
[2021-12-19] MEDS: Triamterene 37.5MG/Hctz 25MG Capsule 1 CAP PO (05:40)
[2021-12-19] MEDS: Ciprofloxacin 500 MG Tablet PO ×2 (05:40→17:42)
--- NOTE | 2021-12-19 10:56 | PCM.PN.DRR ---
TCU RX Drug Regimen Review Subjective: TCU Admission. 86 YOF presented to the ER for a fall. Hospitalized for E. Coli urinary tract infection, complicated by hyponatremia, hypokalemia. Admitted to TCU with debility for strengthening or rehabilitation. Objective: Allergies No Known Allergies Allergy (Verified 12/13/21 12:38) Current Medications Generic Name Dose Route Start Last Admin Trade Name Freq PRN Reason Stop Dose Admin Acetaminophen 1,000 mg 12/16/21 16:58 Acetaminophen 500 Mg Tablet PO Q6H PRN PRN Pain Score 1-5 Ciprofloxacin HCl 500 mg 12/16/21 18:00 12/19/21 05:40 Ciprofloxacin 500 Mg Tablet PO 12/23/21 06:01 500 mg BID JOSS Administration Lactobacillus Acidophilus 1 tablet 12/16/21 18:00 12/19/21 05:40 Lactobacillus Acidophilus PO 12/23/21 18:01 1 tablet BID JOSS Administration Magnesium Hydroxide 30 ml 12/16/21 16:58 Magnesium Hydroxide 30 Ml Udc PO DAILY PRN Constipation Meloxicam 7.5 mg 12/16/21 16:58 Meloxicam 7.5 Mg Tablet PO DAILY PRN Pain Score 6-10 Senna/Docusate Sodium 1 tablet 12/16/21 18:00 12/19/21 05:40 Senna/Docusate Sodium 1 Tablet PO 1 tablet BID JOSS Administration Sodium Chloride 10 - 40 ml 12/16/21 15:34 0.9% Saline Lock 10 Ml Syringe IV UD PRN SALINE FLUSH Triamterene/Hydrochlorothiazide 1 cap 12/17/21 06:00 12/19/21 05:40 Triamterene 37.5mg/Hctz 25mg Capsule PO 1 cap DAILY JOSS Administration Tuberculin PPD 0.1 ml 12/24/21 10:00 Tuberculin,Purif.Prot.Deriv. 50 Tu/Ml Vial ID 12/24/21 10:01 X1 ONE Problem List (Last Reviewed 12/17/21 @ 09:48 by Nery Castellon) Osteoarthritis (Acute) Hypertension (Chronic) Hyponatremia (Acute) Hypokalemia (Acute) Urinary tract infection (Acute) Debility (Acute) Vital Signs Temp Pulse Resp BP Pulse Ox O2 Del Method 98.0 F 80 18 116/65 94 Room Air 12/18/21 14:30 12/18/21 14:30 12/18/21 14:30 12/18/21 14:30 12/18/21 14:30 12/18/21 14:30 Oxygen Delivery Method Room Air Weight: 63.274 kg Body Mass Index (BMI) 23.2 Sodium 134 mmol/L (136-145) L 12/17/21 05:31 Potassium 4.0 mmol/L (3.5-5.1) 12/17/21 05:31 Chloride 103 mmol/L (98-107) 12/17/21 05:31 Carbon Dioxide 22.0 mmol/L (21.0-32.0) 12/17/21 05:31 Anion Gap 9 (5-15) 12/17/21 05:31 BUN 20 mg/dL (7-18) H 12/17/21 05:31 Creatinine 0.88 mg/dL (0.55-1.02) 12/17/21 05:31 Est GFR (MDRD) Af Amer 78 mL/min (>60) 12/17/21 05:31 Est GFR (MDRD) Non-Af 64 mL/min (>60) 12/17/21 05:31 BUN/Creatinine Ratio 22.7 RATIO (10-20) H 12/17/21 05:31 Glucose 111 mg/dL (74-106) H 12/17/21 05:31 Assessment/Plan: 1. Pain: acetaminophen 1000mg PO Q6H PRN pain 1-5 and meloxicam 7.5mg PO daily PRN pain 6-10. Resident has not had any doses. Please continue to monitor for increased pain and PRN usage. 2. Bowel: senna/docusate 1T PO BID and MOM 30ML PO daily PRN constipation. Last documented bowel movement was 12/15. Please continue to monitor for constipation and PRN usage. 3. E. coli UTI: ciprofloxacin 500mg PO BID thru 12/23/21. Please continue to monitor for S/S of infection, renal function, and tendon pain (black box warning). 4. GI prophylaxis: lactobacillus acidophilus 1T PO BID thru 12/23/21. Please continue to monitor for diarrhea. 5. Hypertension: triamterene/hydrochlorothiazide 37.5/25mg 1C PO daily. Please continue to monitor for sodium (last 134mmol/L), potassium (last 4mmol/L), renal function and BP (last 116/65). Assessment/Plan for indications treated with psychotropic medications: None Medical chart and medication regimen reviewed. The following medication irregularities or issues were identified: None Date of Note:: 12/19/21
--- NOTE | 2021-12-19 12:04 | CASEMGMT ---
Social Work IDT met with patient and dtr for care plan meeting. Discussed patient's progress in PT/OT/ST/SN. Educated to [facility] insurance with NRD 12/24 and continued stay is not guaranteed with each review. Pts goal is to return home alone. However, pt has steps to navigate and dtr is working timekeeper supervisor. IDT to make recommendations on safe DC plans. SW to continue to follow for DC planning. Viviane Jamison, CREMATORIUM OPERATOR MARKETING MGR
--- NOTE | 2021-12-19 14:34 | CHAPLAIN ---
Type of Pastoral Visit _x__ Initial Visit ___ Follow-up Visit ___ On-call Visit ___ General Patient Visit ___ Spiritual Assessment ___ Family Conference ___ Bereavement ___ Rapid Response ___ Code Blue ___ Other (describe below) Pastoral Care Referral From _x__ Patient ___ Family ___ Nurse ___ Physician ___ Impression Printer ___ Consultant Dietitian ___ Other (describe below) Sacrament/Intervention _x__ Active listening ___ Anointing ___ Caodaism ___ Bereavement ___ Communion ___ [place] exploration ___ _x__ Life review _x_ Prayer ___ Reconciliation ___ Sacrament of Sick ___ Supportive presence ___ Wedding ___ Other (describe below) Pastoral Comments patient gives lots of family life review and speaks of some of the family gathering for Thanksgiving; most of her children do not live in this state and she does not see them much; pt states she was active in the Bahai Hoah[employer]ism before she moved to [place] but now attends the Confucianism yazdanism with her daughter; pt hopes to start participating with a ladies Bible Study in the near future; pt welcomes presence and prayer
[2021-12-19] MEDS: Ensure Plus High Protein 120 ML LIQUID PO (17:45)
[2021-12-19 22:45] VITALS: PULSE 77; RESP 16; O2SAT 98
[2021-12-20] MEDS: Ciprofloxacin 500 MG Tablet PO ×2 (06:04→17:16)
[2021-12-20] MEDS: Triamterene 37.5MG/Hctz 25MG Capsule 1 CAP PO (06:04)
[2021-12-20] MEDS: Senna/Docusate Sodium 1 Tablet PO (06:05)
[2021-12-20 06:09] VITALS: BP 131/53; PULSE 67; RESP 16
[2021-12-20] MEDS: Ensure Plus High Protein 120 ML LIQUID PO (12:28)
[2021-12-20 15:34] VITALS: BP 94/64; PULSE 77; RESP 14; TEMP 36.6; O2SAT 97
[2021-12-20] MEDS: Acetaminophen 500 MG Tablet 1000 MG PO (15:35)
[2021-12-20 20:14] VITALS: O2SAT 96
[2021-12-21] MEDS: Ciprofloxacin 500 MG Tablet PO (05:21)
[2021-12-21] MEDS: Senna/Docusate Sodium 1 Tablet PO (05:22)
[2021-12-21] MEDS: Triamterene 37.5MG/Hctz 25MG Capsule 1 CAP PO (05:22)
[2021-12-21 05:34] VITALS: BP 121/60; PULSE 66
[2021-12-21 09:25] VITALS: PULSE 74; RESP 18; O2SAT 96
--- NOTE | 2021-12-21 10:19 | CASEMGMT ---
Social Work BIMS () and PHQ-9 (03/08) completed for MDS assessment. Viviane Jamison MSW RESORT HOUSEKEEPER
--- NOTE | 2021-12-21 13:19 | MDS.RN ---
Pain interview for OMKAR 12/23/21
[2021-12-21 14:47] VITALS: BP 101/51; PULSE 66; RESP 16; TEMP 37.5; O2SAT 95
[2021-12-21] MEDS: Hydrocortisone 2.5% Crm 1 APPLIC TOPICAL (18:04)
[2021-12-21] MEDS: Ciprofloxacin 250 MG Tablet PO (18:07)
[2021-12-22] MEDS: Ciprofloxacin 250 MG Tablet PO ×2 (05:40→17:25)
[2021-12-22] MEDS: Senna/Docusate Sodium 1 Tablet PO ×2 (05:40→17:26)
[2021-12-22] MEDS: Triamterene 37.5MG/Hctz 25MG Capsule 1 CAP PO (05:40)
[2021-12-22] MEDS: Hydrocortisone 2.5% Crm 1 APPLIC TOPICAL (05:41)
[2021-12-22] MEDS: Ensure Plus High Protein 120 ML LIQUID PO ×3 (07:55→17:25)
[2021-12-22 14:47] VITALS: BP 105/58; PULSE 71; RESP 16; TEMP 36.7; O2SAT 96
[2021-12-22 21:11] VITALS: PULSE 73; RESP 16; O2SAT 95
[2021-12-23] MEDS: Triamterene 37.5MG/Hctz 25MG Capsule 1 CAP PO (06:50)
[2021-12-23] MEDS: Senna/Docusate Sodium 1 Tablet PO ×2 (06:50→16:41)
[2021-12-23] MEDS: Ciprofloxacin 250 MG Tablet PO (06:50)
[2021-12-23 06:51] VITALS: BP 122/63; PULSE 71
[2021-12-23 16:00] VITALS: BP 102/50; PULSE 64; RESP 16; TEMP 37.1; O2SAT 96
[2021-12-24 05:54] LABS: Hematocrit 31.8 % (37-47); Hemoglobin 11.1 g/dL (12.0-15.0); Mean Corp Hgb Conc 34.9 g/dL (32-36); Mean Corpuscular Hgb 31.7 pg (27.0-32.0); Mean Corpuscular Volume 90.9 fL (81-99); Mean Platelet Vol. 8.9 fl (6.2-12.0); POSITIVE COUNT YES; POSITIVE MORPHOLOGY YES; Platelet Count 544 K/mm3 (150-450); RBC Distribution Width CV 14.2 % (11.6-14.6); RBC Distribution Width SD 47.2 fl (35.1-43.9)
[2021-12-24 06:18] LABS: Differential Indicated MANUAL DIFF
[2021-12-24 06:19] LABS: Anion Gap 8 (5-15); BUN 36 mg/dL (7-18); BUN/Creat Ratio 34.6 RATIO (10-20); Calcium,Total 8.6 mg/dL (8.5-10.1); Chloride 101 mmol/L (98-107); Creatinine, Serum 1.04 mg/dL (0.55-1.02); EST Glomerular Filtration Rate 53 mL/min (>60); Est Glom Filt Rate - Afr Amer 64 mL/min (>60); Estimated Creatinine Clearance 34.29 ml/min; Glucose 109 mg/dL (74-106); Potassium 3.9 mmol/L (3.5-5.1); Sodium Level 135 mmol/L (136-145)
[2021-12-24 06:43] LABS: Anisocytosis 1+; Platelet Estimate MOD INC (ADEQ)
[2021-12-24 06:45] LABS: Absolute Neutrophil Count 8.6 X10^3/uL (2.0-7.7)
[2021-12-24 06:46] LABS: Absolute Lymphocyte Count 1.32 X10^3/uL (0.83-4.51); Atypical Lymphocyte 1+ %; Lymphocyte 11 % (19-41); Monocyte 11 % (0-10); Myelocyte 5 % (0-0); Neutrophil-Band 9 % (0-5); Neutrophil-Segmented 63 % (47-70); Promyelocyte 1 % (0-0); Red Cell Morphology NORM C+C NORMAL (NORM C&C); Total Cells Counted 100 (MANUAL DIFF)
[2021-12-24] MEDS: Triamterene 37.5MG/Hctz 25MG Capsule 1 CAP PO (08:38)
[2021-12-24] MEDS: Senna/Docusate Sodium 1 Tablet PO ×2 (08:38→17:15)
--- NOTE | 2021-12-24 09:08 | NURSING ---
Classification Analyst Note, MDS Complete
--- NOTE | 2021-12-24 09:53 | CASEMGMT ---
Social Work Received message to contact dtr. SW spoke with dtr and answered questions. Dtr inquiring about insurance NRD, DC date, and options if pt is not able to return home. SW educated to insurance NRD 12/24 and continued stay is not guaranteed. SW reviewed pt's progress in PT/OT. Pt is still needing assistance with ADLs, walking 20-30 ft, which is not a household distance. Pt lives at home alone and was Anupam prior. Dtr works floor molder and is unable to assist pt at home. Dtr requesting referrals to [facility], [facility], [facility], if pt gets a DC date prior to being safe at home. SW agreed to make referrals but educated to private pay room and board and part B therapies, with 30 days initial funds. Dtr expressed understanding and did not state that would be an issue. Dtr appreciative of assistance. SW made SNF referrals via [facility]. Viviane Jamison, CESARIO VALDOVINOSW
[2021-12-24] MEDS: Tuberculin,Purif.prot.deriv. 50 TU/ML Vial 0.1 ML ID (10:14)
[2021-12-24 16:00] VITALS: BP 97/52; PULSE 68; RESP 18; TEMP 36.4; O2SAT 96
[2021-12-24] MEDS: Ensure Plus High Protein 120 ML LIQUID PO (17:13)
[2021-12-24 17:16] VITALS: BP 108/55; PULSE 66
[2021-12-25] MEDS: Ensure Plus High Protein 120 ML LIQUID PO ×2 (08:04→17:27)
[2021-12-25] MEDS: Triamterene 37.5MG/Hctz 25MG Capsule 1 CAP PO (08:04)
[2021-12-25] MEDS: Senna/Docusate Sodium 1 Tablet PO (08:04)
[2021-12-25 08:07] LABS: Pathologist Review Reviewed
[2021-12-25 10:00] VITALS: PULSE 66; RESP 18; O2SAT 97
--- NOTE | 2021-12-25 10:33 | NURSING ---
ASKED PT IF SHE WOULD LIKE TO BRUSH HER TEETH,PT REFUSED.
--- NOTE | 2021-12-25 11:31 | NURSING ---
FINE CRACKLES TO POST LOWER LOBES. ENCOURAGED AND WATCHED PT DEMONSTRATE THE I.S. WILL CONTINUE TO MONITOR.
--- NOTE | 2021-12-25 13:26 | CASEMGMT ---
Social Work Left voicemail updating dtr with insurance NRD 12/31 and [facility] and [facility] accepted pt. [facility] has not responded. Viviane Jamison, MANAGER WORK CHIEF OPERATING ENGINEER
[2021-12-25 14:08] VITALS: BP 125/58; PULSE 58; RESP 16; TEMP 36.4; O2SAT 97
[2021-12-26] MEDS: Triamterene 37.5MG/Hctz 25MG Capsule 1 CAP PO (09:05)
[2021-12-26 16:00] VITALS: BP 128/62; PULSE 62; RESP 16; TEMP 36.5; O2SAT 97
[2021-12-26 21:47] VITALS: PULSE 64; RESP 14; O2SAT 97
[2021-12-27] MEDS: Triamterene 37.5MG/Hctz 25MG Capsule 1 CAP PO (08:45)
--- NOTE | 2021-12-27 10:08 | MDS.RN ---
Information for the mds was obtained from review of the clinical record, interview of resident, staff, and direct observation of resident's care.
[2021-12-27 10:53] VITALS: PULSE 61; RESP 16; O2SAT 97
[2021-12-27 14:00] VITALS: BP 121/58; PULSE 71; RESP 16; TEMP 36.6; O2SAT 96
[2021-12-27 20:54] VITALS: BP 139/53; PULSE 61; RESP 16; TEMP 37.3; O2SAT 96
--- NOTE | 2021-12-27 21:19 | RAD_ITS ---
STUDY: X-RAY CHEST REASON FOR EXAM: Female, 86 years old. Coarse Crackles TECHNIQUE: PA and lateral. COMPARISON: None. FINDINGS: LUNGS: Mild reticulonodular opacities throughout the lungs. No consolidation. No pneumothorax. MEDIASTINUM: Aorta tortuous and atherosclerotic. CARDIAC SILHOUETTE: Not enlarged. BONES AND SOFT TISSUES: Scoliosis and degenerative changes. RAD/Chest PA and Lateral IMPRESSION: Reticulonodular infiltrates bilaterally may be acute such as viral pneumonitis, edema, or chronic. No consolidation. Electronically Signed: Anna Ma MD at 23:15 EST ,
--- NOTE | 2021-12-27 21:30 | NURSING ---
Addendum entered by Zully Correa 12/27/21 22:01: X-ray tech called and stated patient had thrown up and had a large bowel movement on table. Request for someone to come get patient. Original Note: Patient refusing to eat or drink today. Poor appetite yesterday as well. Several episodes of loose/liquid bowel movements. Vitals obtained as noted in chart. Dr. Blanchard paged. New orders received. 1-CBC and BMP 2-UA C&S 3-KUB 4-Chest X-ray
[2021-12-27 21:39] LABS: Absolute Lymphocyte Count 1.26 X10^3/uL (0.83-4.51); Absolute Neutrophil Count 14.8 X10^3/uL (2.0-7.7); Basophil# 0.08 X10^3/uL; Basophil% 0.5 % (0-1); Eosinophil# 0.07 X10^3/uL; Eosinophils% 0.4 % (0-5); Hematocrit 37.4 % (37-47); Hemoglobin 12.4 g/dL (12.0-15.0); Lymphocyte # 1.26 X10^3/ul (0.83-4.51); Lymphocyte % 7.5 % (19-41); Mean Corp Hgb Conc 33.2 g/dL (32-36); Mean Corpuscular Hgb 30.6 pg (27.0-32.0); Mean Corpuscular Volume 92.3 fL (81-99); Mean Platelet Vol. 9.1 fl (6.2-12.0); Monocyte# 0.54 X10^3/uL; Monocyte% 3.2 % (0-10); NRBC Flagged by Analyzer 0 % (0-5); Neutrophil # 14.81 X10^3/uL (2.7-7.7); Neutrophil % 87.9 % (47-70); Platelet Count 533 K/mm3 (150-450); RBC Distribution Width CV 14.2 % (11.6-14.6); RBC Distribution Width SD 48.3 fl (35.1-43.9); Red Blood Count 4.05 M/mm3 (4.2-5.4); White Blood Count 16.9 K/mm3 (4.4-11.0)
[2021-12-27 22:09] LABS: Anion Gap 7 (5-15); BUN 26 mg/dL (7-18); BUN/Creat Ratio 26.4 RATIO (10-20); Calcium,Total 9.1 mg/dL (8.5-10.1); Chloride 99 mmol/L (98-107); Creatinine, Serum 0.98 mg/dL (0.55-1.02); EST Glomerular Filtration Rate 57 mL/min (>60); Est Glom Filt Rate - Afr Amer 69 mL/min (>60); Estimated Creatinine Clearance 36.39 ml/min; Glucose 121 mg/dL (74-106); Potassium 3.4 mmol/L (3.5-5.1); Sodium Level 134 mmol/L (136-145)
--- NOTE | 2021-12-27 22:19 | RAD_ITS ---
STUDY: X-RAY - ABDOMEN/PELVIS REASON FOR EXAM: Female, 86 years old. N/V/D TECHNIQUE: AP supine and upright views. 2 images. COMPARISON: None. FINDINGS: Borderline dilated small bowel with fluid levels, nonspecific pattern. Air in the colon. No free air. Marked scoliosis and degenerative changes. Lung bases are not well assessed. RAD/Abd Inc Decub and/or Erect IMPRESSION: Nonspecific fluid levels in borderline dilated small bowel. Pattern can be seen with ileus or enteritis. Cannot entirely exclude early or evolving small bowel obstruction. Electronically Signed: Anna Ma MD at 0:09 EST ,
[2021-12-27 22:26] LABS: Bacteria 0 SEEN /hpf (None Seen); Mucous, Urine 0 SEEN /hpf (<or=2+); Red Blood Cells-Urine 0 SEEN /hpf (0-5)
[2021-12-27 22:30] LABS: Color, Urine Yellow (Yellow); Glucose, Dipstick Normal (Normal); Ketone-Dipstick Negative (Negative); Leukocyte Esterase-Dipstick 25 /ul (Negative); Nitrite-Dipstick Negative (Negative); Occult Blood-Urine Negative /ul (Negative); Protein-Dipstick Negative (Negative); Urine Bilirubin Dipstick Negative (Negative); Urine Clarity Sl. Cloudy (Clear); Urine Urobilinogen Normal (Normal)
[2021-12-27 22:37] LABS: Squamous Epithelial Cells - UA 0-5 SEEN /hpf (5-10); White Blood Cells 0-5 SEEN /hpf (0-5)
[2021-12-28] MEDS: Doxycycline 100 MG CAPSULE PO (00:09)
[2021-12-28] MEDS: Potassium Chloride Oral Tablet 20 MEQ PO (00:09)
[2021-12-28] MEDS: 0.9% Normal Saline 1,000 ML 100 ML IV (01:57)
[2021-12-28 02:00] VITALS: BP 136/58; PULSE 58; RESP 12; TEMP 37.7; O2SAT 95
[2021-12-28] MEDS: Ondansetron ODT 4 MG Tablet PO (02:04)
[2021-12-28] MEDS: 0.9% Saline Lock 10 ML Syringe IV (02:04)
--- NOTE | 2021-12-28 03:28 | NURSING ---
0129-Patient assisted to restroom. As patient went to sit on toilet, patient became pale in color, sat on toiled and became unresponsive. Alarm pulled and RN called BRASS POURER. This nurse attempted to arouse patient with painful stimuli without success. After approximately 45-50 seconds and third sternal rub, patient inhaled deeply and started to move eyes back and forth. Patient still pale in color. Vitals obtained as noted in chart. Patient able to answer questions appropriately. When asked patient how she felt, patient stated, Shitty! New order for 1000 mL at 100 mL/hr. 22 gauge IV started in left forearm, flushed with 10 cc Normal Saline and secured with tegaderm and tape. 01:40-Dr. Blanchard paged with immediate return call. Updated on BRASS POURER. New order for Zofran 4mg ODT q8h PRN. Stool sample
--- NOTE | 2021-12-28 05:30 | NURSING ---
Lab called and reported C-diff was positive.
[2021-12-28 06:21] LABS: Anion Gap 8 (5-15); BUN 25 mg/dL (7-18); BUN/Creat Ratio 27.6 RATIO (10-20); Calcium,Total 8.9 mg/dL (8.5-10.1); Chloride 101 mmol/L (98-107); Creatinine, Serum 0.91 mg/dL (0.55-1.02); EST Glomerular Filtration Rate 62 mL/min (>60); Est Glom Filt Rate - Afr Amer 75 mL/min (>60); Estimated Creatinine Clearance 39.19 ml/min; Glucose 131 mg/dL (74-106); Potassium 3.3 mmol/L (3.5-5.1); Sodium Level 133 mmol/L (136-145)
[2021-12-28] MEDS: Losartan Potassium 100 MG Tablet PO (10:28)
[2021-12-28] MEDS: 0.9% Normal Saline 1,000 ML 60 ML IV (12:13)
[2021-12-28] MEDS: Vancomycin 125 MG/5 ML Susp PO.SYRINGE PO ×2 (12:14→17:39)
[2021-12-28 13:49] VITALS: BP 99/39; PULSE 57; RESP 16; TEMP 36.6; O2SAT 96
[2021-12-29] MEDS: Vancomycin 125 MG/5 ML Susp PO.SYRINGE PO ×4 (00:30→17:39)
[2021-12-29] MEDS: 0.9% Normal Saline 1,000 ML 60 ML IV ×2 (05:00→21:54)
[2021-12-29] MEDS: Losartan Potassium 100 MG Tablet PO (08:10)
[2021-12-29 14:17] VITALS: BP 106/54; PULSE 60; RESP 16; TEMP 36.4; O2SAT 96
[2021-12-29 19:30] VITALS: O2SAT 96
[2021-12-30] MEDS: Vancomycin 125 MG/5 ML Susp PO.SYRINGE PO ×5 (00:08→23:00)
[2021-12-30] MEDS: Losartan Potassium 100 MG Tablet PO (08:57)
[2021-12-30] MEDS: 0.9% Normal Saline 1,000 ML 60 ML IV (13:11)
[2021-12-30 14:39] VITALS: BP 130/74; PULSE 54; RESP 14; TEMP 36.3; O2SAT 96
--- NOTE | 2021-12-30 20:55 | NURSING ---
Paged Dr. Blanchard w/ immediate return phone call. Updated on K+ at 3.3 on 12/28. BMP is scheduled for tomorrow. Question if pt should receive a potassium supplement. New order received to have BMP drawn tomorrow am.
[2021-12-31] MEDS: 0.9% Normal Saline 1,000 ML 60 ML IV (05:35)
[2021-12-31] MEDS: Vancomycin 125 MG/5 ML Susp PO.SYRINGE PO ×3 (05:36→17:41)
[2021-12-31 05:37] LABS: Absolute Lymphocyte Count 2.16 X10^3/uL (0.83-4.51); Absolute Neutrophil Count 6.3 X10^3/uL (2.0-7.7); Basophil# 0.11 X10^3/uL; Basophil% 1.1 % (0-1); Eosinophil# 0.34 X10^3/uL; Eosinophils% 3.5 % (0-5); Hematocrit 32.6 % (37-47); Hemoglobin 10.7 g/dL (12.0-15.0); Lymphocyte # 2.16 X10^3/ul (0.83-4.51); Mean Corp Hgb Conc 32.8 g/dL (32-36); Mean Corpuscular Hgb 30.5 pg (27.0-32.0); Mean Corpuscular Volume 92.9 fL (81-99); Mean Platelet Vol. 9.5 fl (6.2-12.0); Monocyte# 0.72 X10^3/uL; Monocyte% 7.3 % (0-10); NRBC Flagged by Analyzer 0 % (0-5); Neutrophil # 6.32 X10^3/uL (2.7-7.7); Neutrophil % 64.6 % (47-70); Platelet Count 428 K/mm3 (150-450); RBC Distribution Width CV 14.2 % (11.6-14.6); Red Blood Count 3.51 M/mm3 (4.2-5.4); White Blood Count 9.8 K/mm3 (4.4-11.0)
[2021-12-31 06:08] LABS: Anion Gap 7 (5-15); BUN 19 mg/dL (7-18); BUN/Creat Ratio 23.6 RATIO (10-20); Calcium,Total 8.3 mg/dL (8.5-10.1); Chloride 108 mmol/L (98-107); Creatinine, Serum 0.81 mg/dL (0.55-1.02); EST Glomerular Filtration Rate 71 mL/min (>60); Est Glom Filt Rate - Afr Amer 86 mL/min (>60); Estimated Creatinine Clearance 44.03 ml/min; Glucose 89 mg/dL (74-106); Sodium Level 138 mmol/L (136-145)
[2021-12-31] MEDS: Losartan Potassium 100 MG Tablet PO (07:48)
[2021-12-31] MEDS: Senna/Docusate Sodium 1 Tablet PO (07:48)
[2021-12-31 13:51] VITALS: BP 133/54; PULSE 55; RESP 16; TEMP 36.4; O2SAT 97
--- NOTE | 2021-12-31 16:12 | NURSING ---
Dr. Santo nicolas 01/03 daughter to pickle processor at 12:00 plan to be back around 5. I gave her info on cdiff and teaching.
[2021-12-31 22:38] VITALS: PULSE 61; RESP 16; O2SAT 97
[2022-01-01] MEDS: Vancomycin 125 MG/5 ML Susp PO.SYRINGE PO ×5 (00:38→23:54)
[2022-01-01] MEDS: 0.9% Saline Lock 10 ML Syringe IV (05:39)
[2022-01-01 05:54] LABS: Hematocrit 33.2 % (37-47); Hemoglobin 11.1 g/dL (12.0-15.0)
[2022-01-01] MEDS: Losartan Potassium 100 MG Tablet PO (10:40)
[2022-01-01] MEDS: Senna/Docusate Sodium 1 Tablet PO ×2 (10:41→17:08)
[2022-01-01 14:54] VITALS: BP 116/60; PULSE 58; RESP 16; TEMP 37.2; O2SAT 96
[2022-01-02] MEDS: Vancomycin 125 MG/5 ML Susp PO.SYRINGE PO ×3 (05:31→18:05)
[2022-01-02] MEDS: Losartan Potassium 100 MG Tablet PO (08:48)
[2022-01-02 16:00] VITALS: BP 124/57; PULSE 63; RESP 18; TEMP 37; O2SAT 97
[2022-01-02 22:00] VITALS: PULSE 61; RESP 16; O2SAT 97
[2022-01-03] MEDS: Vancomycin 125 MG/5 ML Susp PO.SYRINGE PO ×5 (00:55→23:51)
[2022-01-03] MEDS: Losartan Potassium 100 MG Tablet PO (08:04)
[2022-01-03 08:06] VITALS: BP 133/64; PULSE 65
[2022-01-03 08:50] VITALS: PULSE 73; RESP 16; O2SAT 93
--- NOTE | 2022-01-03 12:51 | NURSING ---
Addendum entered by Theo Reyna 01/03/22 16:17: PT RETURNED AT 1615 FROM [facility]. SON BROUGHT BACK. Original Note: PT LEFT FOR [facility] AT 1130 AM. SON PICKED UP.
--- NOTE | 2022-01-03 14:18 | NURSING ---
ON ASSESSMENT FINE CRACKLES TO POST LUNGS. ENCOURAGED I.S. AND HAD PT DEMONSTRATE, RN AWARE.
[2022-01-03 16:00] VITALS: BP 116/62; PULSE 60; RESP 16; TEMP 36.1; O2SAT 97
[2022-01-04] MEDS: Vancomycin 125 MG/5 ML Susp PO.SYRINGE PO ×4 (05:33→23:54)
[2022-01-04] MEDS: Senna/Docusate Sodium 1 Tablet PO (07:49)
[2022-01-04] MEDS: Losartan Potassium 100 MG Tablet PO (09:14)
--- NOTE | 2022-01-04 09:15 | CASEMGMT ---
Social Work DC plan remains home alone vs SNF. [facility] and [facility] can both still accept pt when ready and selects [facility]. Insurance update 01/07. SW to continue to follow. Viviane Jamison, FUSION ANALYST SHUTTLE VAN DRIVER
[2022-01-04 16:00] VITALS: BP 102/51; PULSE 61; RESP 16; TEMP 37.2; O2SAT 96
[2022-01-05] MEDS: Vancomycin 125 MG/5 ML Susp PO.SYRINGE PO ×3 (05:18→17:39)
--- NOTE | 2022-01-05 07:19 | NURSING ---
Patient reports no loose stools this shift.
[2022-01-05] MEDS: Losartan Potassium 100 MG Tablet PO (08:28)
[2022-01-05 08:29] VITALS: BP 132/66; PULSE 64
--- NOTE | 2022-01-05 10:57 | NURSING ---
PT HAS HAD 3 FORMED STOOLS. TOOK PT OUT OF PRECAUTIONS. RN AWARE
[2022-01-05 11:00] VITALS: PULSE 59; RESP 16; O2SAT 96
[2022-01-05 15:08] VITALS: BP 114/56; PULSE 66; RESP 18; TEMP 36.9; O2SAT 97
[2022-01-06] MEDS: Vancomycin 125 MG/5 ML Susp PO.SYRINGE PO ×5 (00:03→23:20)
[2022-01-06] MEDS: Losartan Potassium 100 MG Tablet PO (08:20)
[2022-01-06 08:22] VITALS: BP 100/57; PULSE 69
[2022-01-06 15:05] VITALS: BP 96/54; PULSE 69; RESP 16; TEMP 37; O2SAT 95
[2022-01-06 20:00] VITALS: PULSE 84; RESP 14; O2SAT 96
[2022-01-07] MEDS: Vancomycin 125 MG/5 ML Susp PO.SYRINGE PO ×2 (05:01→11:58)
[2022-01-07 05:38] LABS: Absolute Lymphocyte Count 2.74 X10^3/uL (0.83-4.51); Absolute Neutrophil Count 6.4 X10^3/uL (2.0-7.7); Basophil# 0.13 X10^3/uL; Basophil% 1.2 % (0-1); Eosinophil# 0.36 X10^3/uL; Eosinophils% 3.3 % (0-5); Hemoglobin 11.3 g/dL (12.0-15.0); Lymphocyte # 2.74 X10^3/ul (0.83-4.51); Mean Corp Hgb Conc 33.2 g/dL (32-36); Mean Corpuscular Hgb 30.5 pg (27.0-32.0); Mean Corpuscular Volume 91.6 fL (81-99); Mean Platelet Vol. 9.5 fl (6.2-12.0); Monocyte# 0.99 X10^3/uL; NRBC Flagged by Analyzer 0 % (0-5); Neutrophil # 6.36 X10^3/uL (2.7-7.7); Neutrophil % 58.2 % (47-70); Platelet Count 398 K/mm3 (150-450); RBC Distribution Width CV 14.2 % (11.6-14.6); RBC Distribution Width SD 47.5 fl (35.1-43.9); Red Blood Count 3.71 M/mm3 (4.2-5.4); White Blood Count 10.9 K/mm3 (4.4-11.0)
[2022-01-07 06:07] LABS: Anion Gap 5 (5-15); BUN 39 mg/dL (7-18); BUN/Creat Ratio 36.1 RATIO (10-20); Calcium,Total 8.9 mg/dL (8.5-10.1); Chloride 106 mmol/L (98-107); Creatinine, Serum 1.08 mg/dL (0.55-1.02); EST Glomerular Filtration Rate 51 mL/min (>60); Est Glom Filt Rate - Afr Amer 62 mL/min (>60); Estimated Creatinine Clearance 33.02 ml/min; Glucose 92 mg/dL (74-106); Potassium 4.4 mmol/L (3.5-5.1); Sodium Level 137 mmol/L (136-145)
[2022-01-07] MEDS: Losartan Potassium 100 MG Tablet PO (08:17)
[2022-01-07 13:36] VITALS: BP 103/55; PULSE 72; RESP 18; TEMP 36.8; O2SAT 96
--- NOTE | 2022-01-07 15:10 | CASEMGMT ---
Social Work Continued stay denied by insurance with last cover day to be 01/09/2022 and discharge or financial responsibility to begin on 01/10/2022. This manager social media met with patient in room. This manager social media communicating above information. Patient voiced understanding and confirms that plan is for patient to discharge to a care home. Patient request for this manager social media to updated patient daughter, Hayley [place] on above information and to discuss discharge planning further. Telephone call to Hayley Aditi. This manager social media communicating above information. Hayley voiced understanding. Hayley plans to initiate appeal with [facility] why not try [place]. Hayley reports that facility of choice is [facility] and is aware that [facility] has accepted patient. Hayley plans to touch base with [facility] on payment as Hayley is aware that care home placement will be private pay. Hayley to call to initiate appeal. Proposed discharge date: 01/10/2022 pending appeal. Transfer form initiated. PLAN: [facility], intermediate level of care. Social Work to continue to follow. Mark NASSAR, HOLLYS
--- NOTE | 2022-01-07 16:53 | CASEMGMT ---
Social Work Brief interview for mental status (BIMS) and resident mood assessment (PHQ-9) completed on this day. BIMS score 12/25. PHQ-9 score 03/08. Mark NASSAR, HOLLYS
--- NOTE | 2022-01-07 16:53 | CASEMGMT ---
Social Work Appeal has been initiated with [employer]. . Mark NASSAR, [place]
[2022-01-07] MEDS: Senna/Docusate Sodium 1 Tablet PO (17:49)
--- NOTE | 2022-01-07 19:13 | DS.PCM_ITS ---
Providers Date of Admission: 12/16/21 Primary Care Physician: Dr. Efe Winston MD Reason For Visit: COMPLICATED UTI Diagnosis Discharge Diagnosis (1) Debility: Status: Acute Code(s): R53.81 - Other malaise (2) Urinary tract infection: Status: Acute Code(s): N39.0 - Urinary tract infection, site not specified (3) Hypokalemia: Status: Acute Code(s): E87.6 - Hypokalemia (4) Hyponatremia: Status: Acute Code(s): E87.1 - Hypo-osmolality and hyponatremia (5) Hypertension: Status: Chronic Code(s): I10 - Essential (primary) hypertension (6) Osteoarthritis: Status: Acute Code(s): M19.90 - Unspecified osteoarthritis, unspecified site Plan 86 year old female with below past medical history hospitalized for E. Coli urinary tract infection, complicated by hyponatremia, hypokalemia, admitted to TCU with debility, here for rehabilitation, strengthening, prior to discharge home alone. * Debility - PT/OT. * Cognition - ST. * Pain - Tylenol 1000mg q6 prn pain (1-5), Meloxicam 7.5mg daily prn pain (6-1 0). * Bowel - Senna/colace 1 tablet bid, MOM 30ml daily prn. * Adult immunization - Administer pneumonia vaccine, covid19 vaccine, flu vaccine as appropriate. * DVT prophylaxis - Hold. * E. Coli urinary tract infection - Cipro 500mg bid thru 12/23/2021. * GI prophylaxis - Lactobacillus 1 tablet bid thru 12/23/2021. * Hypertension - Maxzide 37.5/25mg daily. Medications at Discharge Home Medications meloxicam 7.5 mg tablet 7.5 mg PO DAILY PRN PRN #3 tabs 12/16/21 acetaminophen 500 mg tablet 1,000 mg PO Q6H PRN PRN Pain Score 1-5 #0 tabs 01/07/22 losartan 100 mg tablet 100 mg PO 0800 #0 tabs 01/07/22 sennosides 8.6 mg-docusate sodium 50 mg tablet (Stool Softener-Stimulant Laxative) 1 tab PO 0800,1800 #0 tabs 01/07/22 Hospital Course Operations None Procedures None Summary of Care Provided Minutes Spent on Discharge: 35 Hospital Course: 86 year old female with below past medical history hospitalized for E. Coli urinary tract infection, complicated by hyponatremia, hypokalemia, admitted to TCU with debility, here for rehabilitation, strengthening, prior to discharge home alone. Discharge to [facility] 01/10/2022, intermediate level of care. Physical Exam Const alert General Appearance: cooperative HEENT normocephalic Eyes PERRL and EOMs intact bilaterally Neck supple, no JVD and no carotid bruits Resp normal respiratory effort, normal air movement and clear to auscultation bilaterally Cardio regular rate and regular rhythm GI normal to inspection, nondistended, normoactive bowel sounds, non-tender and non-distended Extremity normal capillary refill General Extremity: Negative for edema Skin no rashes or lesions noted General Skin Exam: no breakdown Psych affect normal Appearance: appropriate Medical Records Data Medical Nutrition Assessment Dietitian: Malnutrition Criteria Met Start: 01/02/22 14:54 Freq: Status: Active Protocol: Document 01/02/22 14:54 [place] (Rec: 01/02/22 14:54 [facility] [id number]) Nutrition Malnutrition Evidence of Malnutrition Exists Yes Malnutrition (moderate): Acute Illness/Injury Evidenced By Suboptimal Energy Intake ( Moderate),Weight Loss (Severe) ,Physical Changes (Mild) Intake Problem Inadequate Oral Intake Status Inactive Problem Clinical Problem Acute Disease or Injury Related Malnutrition Etiology related to CDiff and inadequate energy intake to meet est nutritional needs Signs/Symptoms as evidenced by fair po intake , 4.6% wt loss since adm and fat/muscle loss Status Active Problem Recommendation Dietitian Recommendations/Changes Will continue liberalized Regular diet with 1 salt packet per meal per res request Consider appetite stimulant to help encourage improved po intake Will readdress need for ONS w/ res pending continued po intake/wt changes Weight / BMI Weight Weight: 60.413 kg Body Mass Index (BMI) 23.2 ABG / Lab / Microbiology Data Result Diagrams: 01/07/22 05:05 01/07/22 05:05 Laboratory: Laboratory Results - last 24 hr 01/07/22 05:05: WBC 10.9, RBC 3.71 L, Hgb 11.3 L, Hct 34.0 L, MCV 91.6, MCH 30.5, MCHC 33.2, RDW Std Deviation 47.5 H, RDW Coeff of [place] 14.2, Plt Count 398, MPV 9.5, Immature Gran % (Auto) 3.300 H, Neut % (Auto) 58.2, Lymph % (Auto) 25.0, [place] % (Auto) 9.0, Eos % (Auto) 3.3, Baso % (Auto) 1.2 H, Absolute Neuts (auto) 6.4, Absolute Lymphs (auto) 2.74, Nucleated RBC % 0 01/07/22 05:05: Sodium 137, Potassium 4.4, Chloride 106, Carbon Dioxide 26.0, Anion Gap 5, BUN 39 H, Creatinine 1.08 H, Estim Creat Clear Calc 33.02, Est GFR (MDRD) Af Amer 62, Est GFR (MDRD) Non-Af 51 L, BUN/Creatinine Ratio 36.1 H, Glucose 92, Calcium 8.9 Microbiology: Microbiology 12/27/21 22:15 Urine, Catheterized Urine Culture - Final Culture exhibits no growth. 12/28/21 01:40 Stool C. difficile GDH Antigen & Toxins - Final Toxigenic C. difficile 12/28/21 01:40 Stool C. difficile DNA Amplification - Final 12/28/21 00:59 Mucosa - Nasopharyngeal Respiratory Panel (PCR) - Final 12/28/21 00:11 Nasal Secretion SARS-CoV-2 Antigen (Rapid) - Final D/C Instructions Discharge Diet: No restrictions Discharge Activity: Return to Normal Activity, May Shower and Use Walker Weight Bearing Status: Weight bearing as tolerated Call your doctor if you observe: Fever of 101 or Higher, Inability to urinate, Inability to have a bowel movement, Shortness of breath, Dizziness, Fainting spells, Swelling in the ankles, Chest pain and Uncontrolled pain Additional Instructions: Discharge to [facility] 01/10/2022, intermediate level of care. Meaningful Use Info Meaningful Use Diagnoses (Choose all that apply): None applicable Discharge Plan Admission Admit Date/Time: 12/16/21 14:25 Primary Reason for Your Visit: Debility. Attending Provider: Salvador Blanchard Chi Primary Care Provider: Efe Winston Instructions Additional Instructions / Restrictions: Discharge to [facility] 01/10/2022, intermediate level of care. Discharge Orders/Prescriptions Prescriptions: New acetaminophen 500 mg Tablet 1,000 mg PO Q6H PRN PRN (Reason: Pain Score 1-5) Qty: 0 0RF sennosides-docusate sodium [Stool Softener-Stimulant Laxat] 8.6-50 mg Tablet 1 tab PO 0800,1800 Qty: 0 0RF losartan 100 mg Tablet 100 mg PO 0800 Qty: 0 0RF Continued meloxicam 7.5 MG tablet 7.5 mg PO DAILY PRN (Reason: PRN) Qty: 3 0RF Discontinued triamterene-hydrochlorothiazid 1 EACH tablet 1 tab PO DAILY sennosides-docusate sodium [Stool Softener-Stimulant Laxat] 8.6-50 mg Tablet 2 tab PO BID PRN PRN (Reason: Constipation) Qty: 0 0RF acetaminophen [Tylenol] 325 mg Tablet 650 mg PO Q4H PRN PRN (Reason: Fever, pain 1-11/19) Qty: 0 0RF ciprofloxacin HCl 500 mg tablet 500 mg PO BID Lactobacillus acidophilus 1 billion cell tablet 1,000 mmu cells PO BID Referrals / Follow Up: Efe Winston MD [Primary Care Provider] - Disposition Disposition (needs filled in before D/C Order can be placed): NonSkilled NH/Intermed Care
--- NOTE | 2022-01-07 19:17 | TREXTCAR_ITS ---
Diet Diet Order/Speech Therapy: 12/16/21 14:45 Diet: Regular - General Food consistency:: Regular Liquid Consistency:: Regular/Thin Is pt able to select menu?: Yes Diet Comments: no ice in drinks, 1 salt packet per meal Routine Orders/Code Status Code Status: DNRCC Therapies Weight Bearing: Weight bearing as tolerated Extremity Affected:: Bilateral Lower Physical Therapy: Eval and Treat Occupational Therapy: Eval and Treat Problem/Diagnosis (1) Debility: Status: Acute Code(s): R53.81 - Other malaise (2) Urinary tract infection: Status: Acute Code(s): N39.0 - Urinary tract infection, site not specified (3) Hypokalemia: Status: Acute Code(s): E87.6 - Hypokalemia (4) Hyponatremia: Status: Acute Code(s): E87.1 - Hypo-osmolality and hyponatremia (5) Hypertension: Status: Chronic Code(s): I10 - Essential (primary) hypertension (6) Osteoarthritis: Status: Acute Code(s): M19.90 - Unspecified osteoarthritis, unspecified site Plan 86 year old female with below past medical history hospitalized for E. Coli urinary tract infection, complicated by hyponatremia, hypokalemia, admitted to TCU with debility, here for rehabilitation, strengthening, prior to discharge home alone. * Debility - PT/OT. * Cognition - ST. * Pain - Tylenol 1000mg q6 prn pain (1-5), Meloxicam 7.5mg daily prn pain (6- 10). * Bowel - Senna/colace 1 tablet bid, MOM 30ml daily prn. * Adult immunization - Administer pneumonia vaccine, covid19 vaccine, flu vaccine as appropriate. * DVT prophylaxis - Hold. * E. Coli urinary tract infection - Cipro 500mg bid thru 12/23/2021. * GI prophylaxis - Lactobacillus 1 tablet bid thru 12/23/2021. * Hypertension - Maxzide 37.5/25mg daily. Allergies/Procedures Done in Hospital Allergies No Known Allergies Allergy (Verified 12/13/21 12:38) Procedures: None Type of Care/Length of Stay Estimated LOS: More Than 30 Days Type of Care Needed: Intermediate Rehab Potential: Good Prognosis: Good Additional Orders/Day of Discharge Day of Discharge: 01/10/22 Dietary and Speech Recommendations Dietitian Recommendations/Changes: Will continue liberalized Regular diet with 1 salt packet per meal per res request Consider appetite stimulant to help encourage improved po intake Will readdress need for ONS w/ res pending continued po intake/wt changes Discharge Plan Admission Admit Date/Time: 12/16/21 14:25 Primary Reason for Your Visit: Debility. Attending Provider: Salvador Blanchard Chi Primary Care Provider: Efe Winston Instructions Additional Instructions / Restrictions: Discharge to [facility] 01/10/2022, intermediate level of care. Discharge Orders/Prescriptions Prescriptions: New acetaminophen 500 mg Tablet 1,000 mg PO Q6H PRN PRN (Reason: Pain Score 1-5) Qty: 0 0RF sennosides-docusate sodium [Stool Softener-Stimulant Laxat] 8.6-50 mg Tablet 1 tab PO 0800,1800 Qty: 0 0RF losartan 100 mg Tablet 100 mg PO 0800 Qty: 0 0RF Continued meloxicam 7.5 MG tablet 7.5 mg PO DAILY PRN (Reason: PRN) Qty: 3 0RF Discontinued triamterene-hydrochlorothiazid 1 EACH tablet 1 tab PO DAILY sennosides-docusate sodium [Stool Softener-Stimulant Laxat] 8.6-50 mg Tablet 2 tab PO BID PRN PRN (Reason: Constipation) Qty: 0 0RF acetaminophen [Tylenol] 325 mg Tablet 650 mg PO Q4H PRN PRN (Reason: Fever, pain 1-10/10) Qty: 0 0RF ciprofloxacin HCl 500 mg tablet 500 mg PO BID Lactobacillus acidophilus 1 billion cell tablet 1,000 mmu cells PO BID Referrals / Follow Up: Efe Winston MD [Primary Care Provider] - Disposition Disposition (needs filled in before D/C Order can be placed): NonSkilled NH/Intermed Care
[2022-01-08] MEDS: Senna/Docusate Sodium 1 Tablet PO (07:56)
[2022-01-08] MEDS: Losartan Potassium 100 MG Tablet PO (07:57)
--- NOTE | 2022-01-08 10:31 | CASEMGMT ---
Addendum entered by Viviane Jamison 01/08/22 10:34: DC paperwork sent to [facility] via [employer]. Original Note: Social Work PASRR completed in [facility]. CESARIO Sanchez
[2022-01-08 13:29] VITALS: BP 96/52; PULSE 62; RESP 16; TEMP 36.9; O2SAT 94
[2022-01-08 21:00] VITALS: PULSE 66; RESP 16; O2SAT 97
[2022-01-09] MEDS: Losartan Potassium 100 MG Tablet PO (07:56)
[2022-01-09 10:00] VITALS: O2SAT 97
--- NOTE | 2022-01-09 11:32 | CASEMGMT ---
Social Work [facility] notified this worker that pt lost appeal. SW updated pt. Pt plans on DC 01/10 to [facility]. RICHY updated [facility]. Viviane Jamison ,REGULATORY LEADER [employer]GETABLE [employer]
[2022-01-09 14:10] VITALS: BP 90/49; PULSE 65; RESP 16; TEMP 36.6; O2SAT 96
--- NOTE | 2022-01-09 15:16 | NURSING ---
Daughter is taking her to [facility] tomorrow 01/10 at 1430.
[2022-01-10] MEDS: Losartan Potassium 100 MG Tablet PO (08:09)
[2022-01-10 10:00] VITALS: PULSE 66; O2SAT 97
[2022-01-10 12:59] VITALS: BP 96/58
[2022-01-10 13:50] VITALS: PULSE 70; RESP 16; TEMP 36.3; O2SAT 96
[2022-01-10 14:30] VITALS: BP 96/58; PULSE 70; RESP 16; TEMP 36.3; O2SAT 96
== END 2022-01-10 14:30 | disposition intermediate care facility (04) | DRG 690 ==
PROVIDERS: Admitting Provider Family Medicine Geriatric Medicine; PCP Internal Medicine; Visit Provider Family Medicine Geriatric Medicine
DX: N39.0 Urinary tract infection, site not specified (principal); E87.1 Hypo-osmolality and hyponatremia; N18.30 Chronic kidney disease, stage 3 unspecified; M19.90 Unspecified osteoarthritis, unspecified site; I12.9 Hypertensive chronic kidney disease with stage 1 through stage 4 chronic kidney disease, or unspecified chronic kidney disease; E87.6 Hypokalemia; B96.20 Unspecified Escherichia coli [E. coli] as the cause of diseases classified elsewhere; Z87.891 Personal history of nicotine dependence; Z79.899 Other long term (current) drug therapy
CPT/HCPCS: 36415; 71046; 74019; 80048; 81001; 85014; 85018; 85025; 87086; 87426; 87493; 87633; 92507; 92523; 97110; 97116; 97162; 97166; 97530; 97535; 97802; J7030; A4216

== ENCOUNTER → 2022-01-14 | Outpatient (REF) | payer MEDICARE, SELFPAY ==
[2022-01-14 08:46] LABS: Hematocrit 33.1 % (37-47); Mean Corp Hgb Conc 33.2 g/dL (32-36); Mean Corpuscular Hgb 30.7 pg (27.0-32.0); Mean Corpuscular Volume 92.5 fL (81-99); Mean Platelet Vol. 10.8 fl (6.2-12.0); Platelet Count 330 K/mm3 (150-450); RBC Distribution Width CV 14.2 % (11.6-14.6); Red Blood Count 3.58 M/mm3 (4.2-5.4); White Blood Count 10.3 K/mm3 (4.4-11.0)
[2022-01-14 09:01] LABS: Anion Gap 6 (5-15); BUN 25 mg/dL (7-18); BUN/Creat Ratio 28.8 RATIO (10-20); Calcium,Total 8.9 mg/dL (8.5-10.1); Chloride 106 mmol/L (98-107); Creatinine, Serum 0.87 mg/dL (0.55-1.02); EST Glomerular Filtration Rate 66 mL/min (>60); Est Glom Filt Rate - Afr Amer 79 mL/min (>60); Glucose 91 mg/dL (74-106); Potassium 3.9 mmol/L (3.5-5.1); Sodium Level 137 mmol/L (136-145)
[2022-01-15 12:06] LABS: ALB/GLOB Ratio 0.7 RATIO (0.9-2.4); AST(SGOT) 17 U/L (15-37); Alanine Aminotransfer ALT/SGPT 16 U/L (13-56); Albumin, Serum 2.7 g/dL (3.2-5.0); Alkaline Phosphatase 70 U/L (45-117); Globulin 3.8 g/dL (2.2-4.2); Protein, Total 6.5 g/dL (6.4-8.2)
== END ==
LOC: OLS.SW 05:00
PROVIDERS: PCP Internal Medicine; Visit Provider Family Medicine
DX: R79.9 Abnormal finding of blood chemistry, unspecified (principal); Z13.228 Encounter for screening for other metabolic disorders
CPT/HCPCS: 36415; 80053; 85027

== ENCOUNTER → 2022-02-05 | Outpatient (REF) | payer MEDICARE, SELFPAY ==
[2022-02-05 09:46] LABS: Hematocrit 33.2 % (37-47); Mean Corp Hgb Conc 33.1 g/dL (32-36); Mean Corpuscular Hgb 31.4 pg (27.0-32.0); Mean Corpuscular Volume 94.9 fL (81-99); Mean Platelet Vol. 10.6 fl (6.2-12.0); Platelet Count 371 K/mm3 (150-450); RBC Distribution Width CV 15.7 % (11.6-14.6); RBC Distribution Width SD 54.4 fl (35.1-43.9); White Blood Count 10.6 K/mm3 (4.4-11.0)
[2022-02-05 09:59] LABS: ALB/GLOB Ratio 0.7 RATIO (0.9-2.4); AST(SGOT) 15 U/L (15-37); Alanine Aminotransfer ALT/SGPT 18 U/L (13-56); Albumin, Serum 2.8 g/dL (3.2-5.0); Alkaline Phosphatase 77 U/L (45-117); Anion Gap 7 (5-15); BUN 23 mg/dL (7-18); BUN/Creat Ratio 25.4 RATIO (10-20); Calcium,Total 8.8 mg/dL (8.5-10.1); Chloride 105 mmol/L (98-107); EST Glomerular Filtration Rate 62 mL/min (>60); Est Glom Filt Rate - Afr Amer 76 mL/min (>60); Globulin 3.9 g/dL (2.2-4.2); Glucose 76 mg/dL (74-106); Potassium 4.3 mmol/L (3.5-5.1); Protein, Total 6.7 g/dL (6.4-8.2); Sodium Level 137 mmol/L (136-145)
== END ==
LOC: OLS.SW 04:00
PROVIDERS: PCP Internal Medicine; Referring Provider Family Medicine; Visit Provider Family Medicine
DX: R79.9 Abnormal finding of blood chemistry, unspecified (principal); Z13.228 Encounter for screening for other metabolic disorders
CPT/HCPCS: 36415; 80053; 85027

== ENCOUNTER → 2024-03-18 | Outpatient (CLI) | payer MEDICARE, SELFPAY | END | disposition home or self-care (01) | LOC: LABSPEC 15:29 | PROVIDERS: PCP Internal Medicine; Referring Provider Physician Assistant Surgical; Visit Provider Physician Assistant Surgical | DX: R82.90 Unspecified abnormal findings in urine (principal) | CPT/HCPCS: 87086; 87088 ==